=== PATIENT | female | born 1945 | race Caucasian/White ===

== ENCOUNTER → 2018-06-22 08:36 | Outpatient (CLI) | payer OTHER, SELFPAY ==
[2018-06-22 09:37] LABS: Add Manual Diff / Slide Review NO; Basophils Absolute Auto 100 /uL (0-100); Basophils Percent Auto 1.2 % (0-2); Eosinophils Absolute Auto 400 /uL (0-450); Hematocrit 38.5 % (36-46); Hemoglobin 12.7 g/dL (12.0-16.0); Lymphocytes Absolute Auto 1600 /uL (1100-4500); Lymphocytes Percent Auto 26.9 % (25-40); Mean Corpuscular HGB Conc 32.9 % (30-36); Mean Corpuscular Hemoglobin 30.3 PG (26-34); Mean Corpuscular Volume 92.1 fL (80-100); Monocytes Absolute Auto 500 /uL (0-900); Monocytes Percent Auto 9.1 % (3-14); Neutrophils Absolute Auto 3300 /uL (1500-7000); Neutrophils Percent Auto 55.8 % (50-75); Platelet Count 229 X10^3/uL (150-400); Red Blood Cell Count 4.18 X10^6/uL (4.0-5.2); Red Cell Distribution Width 12.4 % (11.6-14.8); White Blood Cell Count 5.9 X10^3/uL (4.5-11.0)
[2018-06-22 09:55] LABS: Alanine Aminotransferase 24 IU/L (9-52); Albumin 4.1 g/dL (3.5-5.0); Albumin Globulin Ratio 1.6 (1.0-2.8); Alkaline Phosphatase 64 U/L (38-126); Aspartate Aminotransferase 25 IU/L (14-36); BUN Creatinine Ratio 23.3 (6-22); Bilirubin Total 0.8 mg/dL (0.2-1.3); Blood Urea Nitrogen 14 mg/dL (7-17); Calcium 10.3 mg/dL (8.4-10.2); Carbon Dioxide 28 mmol/L (22-32); Chloride 102 mmol/L (98-107); Cholesterol 161 mg/dL (140-199); Estimated Glomerular Filt Rate > 60.0 mL/min (>60); Globulin 2.5 g/dL (1.7-4.1); Glucose 80 mg/dL (80-110); HDL Cholesterol 79 mg/dL (40-60); HEMOLYSIS < 15 (0-50); LDL Cholesterol Calculated 74 mg/dL (<100); Potassium 3.7 mmol/L (3.4-5.1); Sodium 138 mmol/L (137-145); Total Protein 6.6 g/dL (6.3-8.2); Triglycerides 41 mg/dL (35-150)
[2018-06-22 10:20] LABS: Vitamin D 25 Hydroxy (D3) 53.9 ng/mL (30.0-100.0)
[2018-06-22 10:32] LABS: Thyroid Stimulating Hormone 2.44 uIU/mL (0.47-4.68)
== END ==
PROVIDERS: PCP Family Medicine; Visit Provider Family Medicine
DX: M85.80 Other specified disorders of bone density and structure, unspecified site (principal); Z13.220 Encounter for screening for lipoid disorders; Z13.29 Encounter for screening for other suspected endocrine disorder
CPT/HCPCS: 36415; 80053; 80061; 82306; 84443; 85025

== ENCOUNTER → 2018-07-05 14:11 | Outpatient (CLI) | payer OTHER, SELFPAY | PROVIDERS: PCP Family Medicine; Visit Provider Family Medicine | DX: M81.0 Age-related osteoporosis without current pathological fracture (principal); Z78.0 Asymptomatic menopausal state; Z82.62 Family history of osteoporosis | CPT/HCPCS: 77080 ==

== ENCOUNTER → 2018-08-29 12:00 | Outpatient (CLI) | payer OTHER, SELFPAY ==
--- NOTE | 2018-08-29 | DI.MG.S_ITS ---
BILATERAL DIGITAL SCREENING MAMMOGRAM 3D/2D WITH CAD: 08/29/2018 CLINICAL: Routine screening. Comparison is made to exams dated: 08/17/2017 mammogram, 07/27/2016 mammogram, and 07/25/2015 mammogram - [facility]. The tissue of both breasts is heterogeneously dense. This may lower the sensitivity of mammography. Current study was also evaluated with a Computer Aided Detection (CAD) system. There are benign calcifications in both breasts. No significant masses, calcifications, or other findings are seen in either breast. There has been no significant interval change. IMPRESSION: There is no mammographic evidence of malignancy. A 1 year screening mammogram is recommended. This exam was interpreted at Station ID: [id number]. NOTE: For mammograms, a report in lay terms will be sent to the patient. Approximately 15% of breast malignancies will not be visualized mammographically. In the management of a palpable breast mass, a negative mammogram must not discourage biopsy of a clinically suspicious lesion. Electronically Signed By: Juan Pablo harrison/micki:08/29/2018 12:50:55 letter sent: Normal Exam ACR BI-RADS Category 2: Benign Finding(s) 3342F
== END ==
PROVIDERS: PCP Family Medicine; Visit Provider Family Medicine
DX: Z12.31 Encounter for screening mammogram for malignant neoplasm of breast (principal)
CPT/HCPCS: 77063; 77067

== ENCOUNTER → 2019-11-02 09:19 | Outpatient (CLI) | payer OTHER, SELFPAY ==
[2019-11-02 09:53] LABS: Add Manual Diff / Slide Review NO; Basophils Absolute Auto 100 /uL (0-100); Eosinophils Absolute Auto 300 /uL (0-450); Eosinophils Percent Auto 5.7 % (2-4); Hematocrit 37.9 % (36-46); Hemoglobin 13.1 g/dL (12.0-16.0); Lymphocytes Absolute Auto 1300 /uL (1100-4500); Lymphocytes Percent Auto 21.6 % (25-40); Mean Corpuscular HGB Conc 34.5 % (30-36); Mean Corpuscular Volume 92.6 fL (80-100); Monocytes Absolute Auto 600 /uL (0-900); Monocytes Percent Auto 9.6 % (3-14); Neutrophils Absolute Auto 3700 /uL (1500-7000); Neutrophils Percent Auto 62.1 % (50-75); Platelet Count 240 X10^3/uL (150-400); Red Blood Cell Count 4.09 X10^6/uL (4.0-5.2); Red Cell Distribution Width 12.7 % (11.6-14.8)
[2019-11-02 10:04] LABS: Alanine Aminotransferase 14 IU/L (<35); Albumin 4.3 g/dL (3.5-5.0); Albumin Globulin Ratio 1.8 (1.0-2.8); Alkaline Phosphatase 54 U/L (38-126); Aspartate Aminotransferase 29 IU/L (14-36); BUN Creatinine Ratio 16.9 (6-22); Bilirubin Total 0.6 mg/dL (0.2-1.3); Blood Urea Nitrogen 11 mg/dL (7-17); Calcium 10.3 mg/dL (8.4-10.2); Carbon Dioxide 29 mmol/L (22-32); Chloride 103 mmol/L (98-107); Cholesterol 179 mg/dL (140-199); Estimated Glomerular Filt Rate > 60.0 mL/min (>60); Globulin 2.4 g/dL (1.7-4.1); Glucose 96 mg/dL (80-110); HDL Cholesterol 87 mg/dL (40-60); HEMOLYSIS < 15 (0-50); LDL Cholesterol Calculated 81 mg/dL (<100); Potassium 4.7 mmol/L (3.4-5.1); Sodium 137 mmol/L (137-145); Total Protein 6.7 g/dL (6.3-8.2); Triglycerides 57 mg/dL (35-150)
== END ==
PROVIDERS: PCP Family Medicine; Referring Provider Family Medicine; Visit Provider Family Medicine
DX: M85.80 Other specified disorders of bone density and structure, unspecified site (principal)
CPT/HCPCS: 36415; 80053; 80061; 85025

== ENCOUNTER → 2019-11-06 14:43 | Outpatient (CLI) | payer OTHER, SELFPAY ==
--- NOTE | 2019-11-06 15:12 | DI.MG.S_ITS ---
Patient Name: MERVAT PERALES date: 1945 Sex: F Attending Physician: Jai Indications: Date: 11/06/2019 15:06 At the request of: Jennifer SHAW Procedure: MM screening mammo BI BILATERAL DIGITAL SCREENING MAMMOGRAM 3D/2D WITH CAD: 11/06/2019 CLINICAL: Routine screening. Comparison is made to exams dated: 08/29/2018 mammogram, 08/17/2017 mammogram, and 07/27/2016 mammogram - [facility]. The tissue of both breasts is heterogeneously dense. This may lower the sensitivity of mammography. Current study was also evaluated with a Computer Aided Detection (CAD) system. There are benign calcifications in both breasts. No significant masses, calcifications, or other findings are seen in either breast. There has been no significant interval change. IMPRESSION: There is no mammographic evidence of malignancy. A 1 year screening mammogram is recommended. This exam was interpreted at Station ID: [id number]. NOTE: For mammograms, a report in lay terms will be sent to the patient. Approximately 15% of breast malignancies will not be visualized mammographically. In the management of a palpable breast mass, a negative mammogram must not discourage biopsy of a clinically suspicious lesion. Electronically Signed By: Lyndon Osorio M.D., jr/micki:11/06/2019 15:43:51 letter sent: Normal Exam ACR BI-RADS Category 2: Benign Finding(s) 3342F
== END ==
PROVIDERS: PCP Family Medicine; Referring Provider Family Medicine; Visit Provider Family Medicine
DX: Z12.31 Encounter for screening mammogram for malignant neoplasm of breast (principal); M85.88 Other specified disorders of bone density and structure, other site; Z78.0 Asymptomatic menopausal state; Z82.62 Family history of osteoporosis
CPT/HCPCS: 77063; 77067; 77080

== ENCOUNTER → 2020-07-11 13:24 | Outpatient (CLI) | payer OTHER, SELFPAY ==
[2020-07-11] MEDS: COVID-19 VACC, Ad26(JANSSEN)/PF 0.5 ML IM (13:54)
== END ==
PROVIDERS: PCP Family Medicine; Visit Provider Internal Medicine
DX: Z23 Encounter for immunization (principal)
CPT/HCPCS: 0031A; 91303

== ENCOUNTER → 2020-11-06 11:24 | Outpatient (CLI) | payer OTHER, SELFPAY ==
--- NOTE | 2020-11-06 11:26 | DI.MG.S_ITS ---
BILATERAL DIGITAL SCREENING MAMMOGRAM 3D/2D WITH CAD: 11/06/2020 CLINICAL: Routine screening. Comparison is made to exams dated: 11/06/2019 mammogram, 08/29/2018 mammogram, and 08/17/2017 mammogram - [facility]. The tissue of both breasts is heterogeneously dense. This may lower the sensitivity of mammography. Current study was also evaluated with a Computer Aided Detection (CAD) system. No significant masses, calcifications, or other findings are seen in either breast. There has been no significant interval change. IMPRESSION: NEGATIVE There is no mammographic evidence of malignancy. A 1 year screening mammogram is recommended. This exam was interpreted at Station ID: [id number]. NOTE: For mammograms, a report in lay terms will be sent to the patient. Approximately 15% of breast malignancies will not be visualized mammographically. In the management of a palpable breast mass, a negative mammogram must not discourage biopsy of a clinically suspicious lesion. Electronically Signed By: Salima atwood/micki:11/06/2020 13:49:41 letter sent: Normal Exam ACR BI-RADS Category 1: Negative 3341F
== END ==
PROVIDERS: PCP Family Medicine; Referring Provider Family Medicine; Visit Provider Family Medicine
DX: Z12.31 Encounter for screening mammogram for malignant neoplasm of breast (principal)
CPT/HCPCS: 77063; 77067

== ENCOUNTER → 2021-02-20 08:36 | Outpatient (CLI) | payer OTHER, SELFPAY ==
[2021-02-20 10:16] LABS: Add Manual Diff / Slide Review NO; Basophils Absolute Auto 100 /uL (0-100); Basophils Percent Auto 0.8 % (0-2); Eosinophils Absolute Auto 500 /uL (0-450); Eosinophils Percent Auto 6.9 % (2-4); Hematocrit 37.4 % (36-46); Hemoglobin 12.6 g/dL (12.0-16.0); Lymphocytes Absolute Auto 1800 /uL (1100-4500); Lymphocytes Percent Auto 27.8 % (25-40); Mean Corpuscular HGB Conc 33.6 % (30-36); Mean Corpuscular Hemoglobin 31.6 PG (26-34); Mean Corpuscular Volume 94.2 fL (80-100); Monocytes Absolute Auto 700 /uL (0-900); Monocytes Percent Auto 10.5 % (3-14); Neutrophils Absolute Auto 3600 /uL (1500-7000); Platelet Count 238 X10^3/uL (150-400); Red Blood Cell Count 3.98 X10^6/uL (4.0-5.2); Red Cell Distribution Width 13.1 % (11.6-14.8); White Blood Cell Count 6.6 X10^3/uL (4.5-11.0)
[2021-02-20 10:25] LABS: Alanine Aminotransferase 14 IU/L (<35); Albumin 4.2 g/dL (3.5-5.0); Albumin Globulin Ratio 1.8 (1.0-2.8); Alkaline Phosphatase 53 U/L (38-126); Aspartate Aminotransferase 27 IU/L (14-36); BUN Creatinine Ratio 23.3 (6-22); Bilirubin Total 0.6 mg/dL (0.2-1.3); Blood Urea Nitrogen 14 mg/dL (7-17); Calcium 10.1 mg/dL (8.4-10.2); Carbon Dioxide 29 mmol/L (22-32); Chloride 103 mmol/L (98-107); Cholesterol 183 mg/dL (140-199); Estimated Glomerular Filt Rate > 60.0 mL/min (>60); Globulin 2.4 g/dL (1.7-4.1); Glucose 89 mg/dL (80-110); HDL Cholesterol 98 mg/dL (40-60); HEMOLYSIS < 15 (0-50); LDL Cholesterol Calculated 72 mg/dL (<100); Potassium 4.9 mmol/L (3.4-5.1); Sodium 136 mmol/L (137-145); Total Protein 6.6 g/dL (6.3-8.2); Triglycerides 64 mg/dL (35-150)
[2021-02-20 11:15] LABS: Free T4, Direct Thyroxine 0.96 ng/dL (0.78-2.19)
[2021-02-20 11:28] LABS: Thyroid Stimulating Hormone 2.38 uIU/mL (0.47-4.68)
== END ==
PROVIDERS: PCP Family Medicine; Referring Provider Family Medicine; Visit Provider Family Medicine
DX: M85.80 Other specified disorders of bone density and structure, unspecified site (principal); Z13.220 Encounter for screening for lipoid disorders
CPT/HCPCS: 36415; 80053; 80061; 84439; 84443; 84481; 85025

== ENCOUNTER → 2021-11-12 15:11 | Outpatient (CLI) | payer OTHER, SELFPAY ==
--- NOTE | 2021-11-12 15:12 | DI.MG.S_ITS ---
BILATERAL DIGITAL SCREENING MAMMOGRAM 3D/2D WITH CAD: 11/12/2021 CLINICAL: Routine screening. Comparison is made to exams dated: 11/06/2020 mammogram, 11/06/2019 mammogram, and 08/29/2018 mammogram - [facility]. The tissue of both breasts is heterogeneously dense. This may lower the sensitivity of mammography. Current study was also evaluated with a Computer Aided Detection (CAD) system. There is a possible developing asymmetry in the right breast at 7 o'clock posterior depth. This is more prominent and increased in size. No other significant masses, calcifications, or other findings are seen in either breast. IMPRESSION: INCOMPLETE: NEEDS ADDITIONAL IMAGING EVALUATION The possible developing asymmetry in the right breast is indeterminate. A diagnostic mammogram and ultrasound is recommended. Based on the Tyrer Cuzick model (a risk assessment model) the patient's lifetime risk is 5.8% and her 10 year risk is 5.8%. According to the ACR, ACS, and NCCN guidelines, an annual breast MRI exam along with mammogram is recommended if the patient's lifetime risk is 20% or greater. This exam was interpreted at Station ID: [id number]. NOTE: For mammograms, a report in lay terms will be sent to the patient. Approximately 15% of breast malignancies will not be visualized mammographically. In the management of a palpable breast mass, a negative mammogram must not discourage biopsy of a clinically suspicious lesion. Electronically Signed By: Lyndon Osorio M.D., jr/micki:11/13/2021 11:53:23 letter sent: Additional Imaging Needed ACR BI-RADS Category 0: Incomplete 3340F
== END ==
PROVIDERS: PCP Family Medicine; Referring Provider Family Medicine; Visit Provider Family Medicine
DX: Z12.31 Encounter for screening mammogram for malignant neoplasm of breast (principal); N64.89 Other specified disorders of breast
CPT/HCPCS: 77063; 77067

== ENCOUNTER → 2021-12-01 10:11 | Outpatient (CLI) | payer OTHER, SELFPAY ==
--- NOTE | 2021-12-01 | DI.MG.S_ITS ---
UNILATERAL RIGHT DIGITAL DIAGNOSTIC MAMMOGRAM 3D/2D WITH ADDITIONAL VIEWS: 12/01/2021 CLINICAL: Additional evaluation requested from prior study. Comparison is made to exams dated: 11/12/2021 mammogram, 11/06/2020 mammogram, and 11/06/2019 mammogram - [facility]. The tissue of right breast is heterogeneously dense. This may lower the sensitivity of mammography. There previously questioned asymmetry in the right breast at 7 o'clock posterior depth has been present since at least 2018 and is statistically benign. This is seen in additional views with improved clarity on the spot compression views. No other significant masses or calcifications are seen in the breast. IMPRESSION: BENIGN There is no mammographic evidence of malignancy. A 1 year screening mammogram is recommended. Based on the Tyrer Cuzick model (a risk assessment model) the patient's lifetime risk is 5.8% and her 10 year risk is 5.8%. According to the ACR, ACS, and NCCN guidelines, an annual breast MRI exam along with mammogram is recommended if the patient's lifetime risk is 20% or greater. This exam was interpreted at Station ID: [id number]. NOTE: For mammograms, a report in lay terms will be sent to the patient. Approximately 15% of breast malignancies will not be visualized mammographically. In the management of a palpable breast mass, a negative mammogram must not discourage biopsy of a clinically suspicious lesion. Electronically Signed By: Lyndon Osorio M.D. jr/:12/01/2021 12:53:44 letter sent: Normal Exam ACR BI-RADS Category 2: Benign Finding(s) 3342F
== END ==
PROVIDERS: PCP Family Medicine; Referring Provider Family Medicine; Visit Provider Family Medicine
DX: R92.8 Other abnormal and inconclusive findings on diagnostic imaging of breast (principal)
CPT/HCPCS: 77065; G0279

== ENCOUNTER → 2021-12-17 11:09 | Outpatient (CLI) | payer OTHER, SELFPAY | PROVIDERS: PCP Family Medicine; Referring Provider Family Medicine; Visit Provider Family Medicine | DX: Z13.820 Encounter for screening for osteoporosis (principal); M81.0 Age-related osteoporosis without current pathological fracture; Z78.0 Asymptomatic menopausal state | CPT/HCPCS: 77080 ==

== ENCOUNTER → 2022-03-03 07:06 | Outpatient (CLI) | payer OTHER, SELFPAY ==
[2022-03-03 08:40] LABS: Add Manual Diff / Slide Review NO; Basophils Absolute Auto 100 /uL (0-100); Eosinophils Absolute Auto 300 /uL (0-450); Eosinophils Percent Auto 4.5 % (2-4); Hematocrit 35.2 % (36-46); Hemoglobin 12.1 g/dL (12.0-16.0); Lymphocytes Absolute Auto 1600 /uL (1100-4500); Lymphocytes Percent Auto 28.8 % (25-40); Mean Corpuscular HGB Conc 34.2 % (30-36); Mean Corpuscular Hemoglobin 31.9 PG (26-34); Mean Corpuscular Volume 93.2 fL (80-100); Monocytes Absolute Auto 500 /uL (0-900); Monocytes Percent Auto 9.4 % (3-14); Neutrophils Absolute Auto 3200 /uL (1500-7000); Neutrophils Percent Auto 56.3 % (50-75); Platelet Count 228 X10^3/uL (150-400); Red Blood Cell Count 3.78 X10^6/uL (4.0-5.2); White Blood Cell Count 5.7 X10^3/uL (4.5-11.0)
[2022-03-03 09:24] LABS: Alanine Aminotransferase 16 IU/L (<35); Albumin 3.9 g/dL (3.5-5.0); Albumin Globulin Ratio 1.6 (1.0-2.8); Alkaline Phosphatase 50 U/L (38-126); Aspartate Aminotransferase 24 IU/L (14-36); BUN Creatinine Ratio 17.7 (6-22); Bilirubin Total 0.8 mg/dL (0.2-1.3); Blood Urea Nitrogen 11 mg/dL (7-17); Carbon Dioxide 29 mmol/L (22-32); Chloride 99 mmol/L (98-107); Cholesterol 186 mg/dL (140-199); Estimated Glomerular Filt Rate > 60 mL/min (>60); Globulin 2.4 g/dL (1.7-4.1); Glucose 87 mg/dL (80-110); HDL Cholesterol 94 mg/dL (40-60); HEMOLYSIS < 15 (0-50); LDL Cholesterol Calculated 83 mg/dL (<100); Potassium 4.4 mmol/L (3.4-5.1); Sodium 135 mmol/L (137-145); Total Protein 6.3 g/dL (6.3-8.2); Triglycerides 43 mg/dL (35-150)
== END ==
PROVIDERS: PCP Family Medicine; Referring Provider Family Medicine; Visit Provider Family Medicine
DX: Z13.220 Encounter for screening for lipoid disorders (principal); K57.90 Diverticulosis of intestine, part unspecified, without perforation or abscess without bleeding; M81.0 Age-related osteoporosis without current pathological fracture
CPT/HCPCS: 36415; 80053; 80061; 85025

== ENCOUNTER → 2022-03-04 14:43 | Outpatient (CLI) | payer OTHER, SELFPAY ==
--- NOTE | 2022-03-04 14:45 | DI.RAD.S_ITS ---
PROCEDURE: XR HIP W PEL IF DONE LT 2V INDICATIONS: pain TECHNIQUE: AP pelvis with lateral view of the left hip. COMPARISON: None. FINDINGS: Bones: No acute fractures or dislocations. Pelvic ring appears intact. No suspicious bony lesions. Mild to moderate joint space narrowing is seen at the hips bilaterally with marginal osteophyte formation that is slightly more prominent on the left. There is over coverage of the femoral heads by the acetabula. Mild degenerative changes are seen in the lumbar spine. Soft tissues: The visualized bowel gas pattern is normal. No suspicious soft tissue calcifications. IMPRESSION: 1. Mild to moderate bilateral hip osteoarthrosis. 2. Mild overcoverage of the femoral heads by the acetabula can be seen in setting of pincer type femoroacetabular impingement. 3. Mild degenerative changes in the lower lumbar spine. Approved by: Yousuf Becerra M.D. on 03/04/2022 at 16:25
== END ==
PROVIDERS: PCP Family Medicine; Referring Provider Family Medicine; Visit Provider Family Medicine
DX: M47.816 Spondylosis without myelopathy or radiculopathy, lumbar region (principal); M25.552 Pain in left hip; M16.0 Bilateral primary osteoarthritis of hip; G89.29 Other chronic pain
CPT/HCPCS: 73502

== ENCOUNTER → 2022-05-13 13:51 | Outpatient (CLI) | payer OTHER, SELFPAY ==
[2022-05-14 16:08] LABS: Fecal Immunochemical Test Negative (Negative)
== END ==
PROVIDERS: PCP Family Medicine; Referring Provider Family Medicine; Visit Provider Family Medicine
DX: Z12.11 Encounter for screening for malignant neoplasm of colon (principal)
CPT/HCPCS: 82274

== ENCOUNTER 2022-07-24 10:30 | Outpatient (RCR) | payer OTHER, SELFPAY ==
--- NOTE | 2022-06-24 16:19 | PT.OPPOC ---
Addendum entered and electronically signed by Carlene Manrique, PT 06/26/22 16:20: need signature Original Note: Physical, Occupational & Speech Therapy At [facility] Current Diagnoses Other chronic pain (06/24/22) Pain in left hip (06/24/22) Visit Care Team Role Provider Type Juan Henry DO Attending Provider Physician Family Provider Primary Care Provider Referring Provider Specialty: Family Practice Address: [address] [place] [address], [facility] Email: Plan Of Care PT-OP-T Assessment and Plan Start: 06/23/22 09:28 Freq: Status: Active Protocol: Document 06/24/22 10:30 AMB (Rec: 06/26/22 16:19 AMB [id number]) Physical Therapy Assessment Goals Three Impairment Transfers Short Term Goal (STG) Elizabeth will move from sit to stand from a low height (low toilet seat) without hip pain. STG Duration 4 weeks Penitentiary Goal (LTG) Elizabeth will move from the floor to standing without environmental support. LTG Duration 10 weeks Two Impairment Strength Short Term Goal (STG) Elizabeth will be independent in a [facility] for hip strengthening. STG Duration 4 weeks Mental Health Advanced Practice Nurse Goal (LTG) Elizabeth will improve her strength so that she can lift 20# from the floor in a squat without an increase in hip pain. LTG Duration 10 weeks One Impairment Pain Short Term Goal (STG) Elizabeth will perform all bed mobility without an increase in hip pain. STG Duration 4 weeks Assessment Summary Assessment Elizabeth attends with L hip pain, good ROM, but does have weak hip extension and abduction. She did have extensive questions about hip osteoarthrosis, osteoporosis and overall prevention of further joint inflammation which were answered. She will benefit from an exercise program to strengthen the muscles surrounding her hip joint and gentle ROM for her stiffness. She also has goals of improving her strength with floor transfers. Physical Therapy Plan Frequency and Duration Frequency of Treatment 2x/Week Duration of treatment (weeks) 10 Plan of Care Start Date 06/24/22 Plan of Care End Date 09/02/22 Therapeutic Interventions Therapeutic Interventions Balance Training,Gait Training ,Home Exercise Program,Joint Mobilizations,Manual Therapy, Neuromuscular Re-education, Self-Care/Home Management, Therapeutic Activities, Therapeutic Exercises Modalities Cold Pack/Ice Massage,Electric Stimulation,Hot Packs Next Visit Focus/Plan Next Note Type Treatment Note Next Visit Plan Gluteal strengthening progression Plan of Care Dates Plan of Care Start Date 06/24/22 Plan of Care End Date 09/02/22 Electronically Signed by: Carlene Manrique, PT 06/26/22 [id number] If you are in agreement with this Plan of Care, please return a signed and dated copy. I have reviewed this Plan of Care and certify that the skilled therapy services above are required to meet the patient?s needs. Physician Signature Date Printed Name and Credentials Clinical Instructor Signature Printed Name and Credentials
--- NOTE | 2022-06-24 16:19 | PT.OIE ---
Current Diagnoses Other chronic pain (06/24/22) Pain in left hip (06/24/22) Past Medical History (Last Updated 03/04/22 @ 14:34 by Juan Henry DO) Abnormal Pap smear of cervix Chicken pox Chronic left hip pain Collar bone fracture (~1977) Colon polyps Diverticulosis Excessive cerumen in right ear canal Hematuria Measles Mumps Nocturnal leg cramps Osteopenia (06/12/14) Osteoporosis (~2018) Screening for hyperlipidemia Shoulder pain (~2007) Skin change Urticaria (~2001) Vaginal atrophy Past Surgical History (Last Updated 02/09/21 @ 21:29 by Danae Angela) Anesthesia Status post colonoscopy (~2009) Visit Care Team Role Provider Type Juan Henry DO Attending Provider Physician Family Provider Primary Care Provider Referring Provider Specialty: Family Practice Address: [address] [place] [address], [facility] Email: Physical Therapy Initial Evaluation PT-OP-A Visit Information Start: 06/23/22 09:28 Freq: Status: Active Protocol: Document 06/24/22 10:46 AMB (Rec: 06/24/22 11:34 AMB [id number]) Out-Patient Physical Therapy Visit Information Visit Information Visit Type Treatment Note Visit Start Time 10:30 Visit Stop Time 11:15 Total Visit Minutes 45 Visit Number 1 PT-OP-B Current Condition Start: 06/23/22 09:28 Freq: Status: Active Protocol: Document 06/24/22 10:46 AMB (Rec: 06/24/22 11:34 AMB [id number]) Current Condition History of Current Condition Onset Date chronic Current Complaints L hip pain History of Current Condition Stiffness when first get up in the left hip, jogging didn't increase sx. Goal of being able to get off the floor without using arms, moving from sit to stand without stiffness, not being painful at night. Reports 3/10 pain in the joint Prior Treatments and Tests Xrays showed osteoarthrosis L hip Treatment Goals Patient/Caregiver Goals Increase strength for better ability/less pain with transfers Personal Factors Other Personal Factors That May Effect Neuropathy, osteoporosis Therapy/Recovery PT-OP-C Subjective Start: 06/23/22 09:28 Freq: Status: Active Protocol: Document 06/24/22 10:30 AMB (Rec: 06/26/22 16:19 AMB [id number]) Patient Questionnaires Lower Extremity Functional Scale LEFS Score 47 PT-OP-G Mobility & Gait Start: 06/23/22 09:28 Freq: Status: Active Protocol: Document 06/24/22 10:30 AMB (Rec: 06/26/22 16:19 AMB [id number]) OP Mobility Evaluation Transfers Sit to Stand pain from low seat/ when has been sitting for a long time Floor Transfers requires UE support PT-OP-J Posture/Palpation/Skin Start: 06/23/22 09:28 Freq: Status: Active Protocol: Document 06/24/22 10:30 AMB (Rec: 06/26/22 16:19 AMB [id number]) Palpation Assessment Location One Palpation Details denies specific tenderness over hip flexor, IT band or piriformis, PT-OP-K Range of Motion Start: 06/23/22 09:28 Freq: Status: Active Protocol: Document 06/24/22 10:30 AMB (Rec: 06/26/22 16:19 AMB [id number]) Hip Goniometric Range of Motion Hip Left Passive Hip ROM WFL Yes Flexion w/Knee Flexed 138 Internal Rotation 25 External Rotation 35 PT-OP-M Strength Start: 06/23/22 09:28 Freq: Status: Active Protocol: Document 06/24/22 10:30 AMB (Rec: 06/26/22 16:19 AMB [id number]) Hip Strength Hip Manual Muscle Testing Right Flexion (L2) 4 Good Extension (S1) 4 Good Abduction 4+ Good+ Left Flexion (L2) 4+ Good+ Extension (S1) 4 Good Abduction 4+ Good+ PT-OP-T Assessment and Plan Start: 06/23/22 09:28 Freq: Status: Active Protocol: Document 06/24/22 10:30 AMB (Rec: 06/26/22 16:19 AMB [id number]) Physical Therapy Assessment Goals Three Impairment Transfers Short Term Goal (STG) Elizabeth will move from sit to stand from a low height (low toilet seat) without hip pain. STG Duration 4 weeks Residential Goal (LTG) Elizabeth will move from the floor to standing without environmental support. LTG Duration 10 weeks Two Impairment Strength Short Term Goal (STG) Elizabeth will be independent in a [facility] for hip strengthening. STG Duration 4 weeks Residential Goal (LTG) Elizabeth will improve her strength so that she can lift 20# from the floor in a squat without an increase in hip pain. LTG Duration 10 weeks One Impairment Pain Short Term Goal (STG) Elizabeth will perform all bed mobility without an increase in hip pain. STG Duration 4 weeks Assessment Summary Assessment Elizabeth attends with L hip pain, good ROM, but does have weak hip extension and abduction. She did have extensive questions about hip osteoarthrosis, osteoporosis and overall prevention of further joint inflammation which were answered. She will benefit from an exercise program to strengthen the muscles surrounding her hip joint and gentle ROM for her stiffness. She also has goals of improving her strength with floor transfers. Physical Therapy Plan Frequency and Duration Frequency of Treatment 2x/Week Duration of treatment (weeks) 10 Plan of Care Start Date 06/24/22 Plan of Care End Date 09/02/22 Therapeutic Interventions Therapeutic Interventions Balance Training,Gait Training ,Home Exercise Program,Joint Mobilizations,Manual Therapy, Neuromuscular Re-education, Self-Care/Home Management, Therapeutic Activities, Therapeutic Exercises Modalities Cold Pack/Ice Massage,Electric Stimulation,Hot Packs Next Visit Focus/Plan Next Note Type Treatment Note Next Visit Plan Gluteal strengthening progression
--- NOTE | 2022-06-30 21:52 | PT.OTN ---
Current Diagnoses Other chronic pain (06/30/22) Pain in left hip (06/30/22) Physical Therapy Treatment Note PT-OP-A Visit Information Start: 06/23/22 09:28 Freq: Status: Active Protocol: Document 06/30/22 09:02 AMB (Rec: 06/30/22 09:41 AMB [id number]) Out-Patient Physical Therapy Visit Information Visit Information Visit Type Treatment Note Visit Start Time 09:00 Visit Stop Time 09:45 Total Visit Minutes 45 Visit Number 2 PT-OP-B Current Condition Start: 06/23/22 09:28 Freq: Status: Active Protocol: Document 06/24/22 10:46 AMB (Rec: 06/24/22 11:34 AMB [id number]) Current Condition History of Current Condition Onset Date chronic Current Complaints L hip pain History of Current Condition Stiffness when first get up in the left hip, jogging didn't increase sx. Goal of being able to get off the floor without using arms, moving from sit to stand without stiffness, not being painful at night. Reports 3/10 pain in the joint Prior Treatments and Tests Xrays showed osteoarthrosis L hip Treatment Goals Patient/Caregiver Goals Increase strength for better ability/less pain with transfers Personal Factors Other Personal Factors That May Effect Neuropathy, osteoporosis Therapy/Recovery PT-OP-C Subjective Start: 06/23/22 09:28 Freq: Status: Active Protocol: Document 06/30/22 09:02 AMB (Rec: 06/30/22 09:41 AMB [id number]) OP-PT Subjective Patient Comments Patient Comments Elizabeth reports hip is stiffer today than yesterday. Has been doing glute sets. PT-OP-G Mobility & Gait Start: 06/23/22 09:28 Freq: Status: Active Protocol: Document 06/24/22 10:30 AMB (Rec: 06/26/22 16:19 AMB [id number]) OP Mobility Evaluation Transfers Sit to Stand pain from low seat/ when has been sitting for a long time Floor Transfers requires UE support PT-OP-J Posture/Palpation/Skin Start: 06/23/22 09:28 Freq: Status: Active Protocol: Document 06/24/22 10:30 AMB (Rec: 06/26/22 16:19 AMB [id number]) Palpation Assessment Location One Palpation Details denies specific tenderness over hip flexor, IT band or piriformis, PT-OP-K Range of Motion Start: 06/23/22 09:28 Freq: Status: Active Protocol: Document 06/24/22 10:30 AMB (Rec: 06/26/22 16:19 AMB [id number]) Hip Goniometric Range of Motion Hip Left Passive Hip ROM WFL Yes Flexion w/Knee Flexed 138 Internal Rotation 25 External Rotation 35 PT-OP-M Strength Start: 06/23/22 09:28 Freq: Status: Active Protocol: Document 06/24/22 10:30 AMB (Rec: 06/26/22 16:19 AMB [id number]) Hip Strength Hip Manual Muscle Testing Right Flexion (L2) 4 Good Extension (S1) 4 Good Abduction 4+ Good+ Left Flexion (L2) 4+ Good+ Extension (S1) 4 Good Abduction 4+ Good+ PT-OP-Q Treatments Start: 06/23/22 09:28 Freq: Status: Active Protocol: Document 06/30/22 09:02 AMB (Rec: 06/30/22 09:41 AMB [id number]) Cardio Equipment Recumbent Bicycle Duration (Minutes) 5 Resistance 8 Seat Position 5 Therapeutic Exercises Sidelying Exercises clamshell Reps/Minutes 2x10 Sitting Exercises PPT Sitting Exercise Name cued to try pelvic tilts before moving from sit to stand Reps/Minutes 10 lunges Sitting Exercise Name forward- small Reps/Minutes 2x10 Comments cues for alignment- avoiding valgus sit to stand Reps/Minutes 10 Comments heavy cues to avoid genu valgus positioning Other Exercises fire hydrant Reps/Minutes 2x10 bird dog Reps/Minutes 2x10 Comments cues for alignment- avoiding excessive lordosis PT-OP-T Assessment and Plan Start: 06/23/22 09:28 Freq: Status: Active Protocol: Document 06/30/22 09:02 AMB (Rec: 06/30/22 09:41 AMB [id number]) Physical Therapy Assessment Goals Three Impairment Transfers Short Term Goal (STG) Elizabeth will move from sit to stand from a low height (low toilet seat) without hip pain. STG Duration 4 weeks [facility] Goal (LTG) Elizabeth will move from the floor to standing without environmental support. LTG Duration 10 weeks Two Impairment Strength Short Term Goal (STG) Elizabeth will be independent in a [facility] for hip strengthening. STG Duration 4 weeks [facility] Goal (LTG) Elizabeth will improve her strength so that she can lift 20# from the floor in a squat without an increase in hip pain. LTG Duration 10 weeks One Impairment Pain Short Term Goal (STG) Elizabeth will perform all bed mobility without an increase in hip pain. STG Duration 4 weeks Assessment Summary Assessment Encouraged Elizabeth in starting to work on posterior pelvic tilt positioning. She does have increased kyphosis which puts her into a lordotic position baseline. She also has a very hard habit of genu valgus with sit to stand so worked heavily on that. To consider orthotics over the coutner vs resident caregiver at next visit. Physical Therapy Plan Frequency and Duration Frequency of Treatment 2x/Week Duration of treatment (weeks) 10 Plan of Care Start Date 06/24/22 Plan of Care End Date 09/02/22 Therapeutic Interventions Therapeutic Interventions Balance Training,Gait Training ,Home Exercise Program,Joint Mobilizations,Manual Therapy, Neuromuscular Re-education, Self-Care/Home Management, Therapeutic Activities, Therapeutic Exercises Modalities Cold Pack/Ice Massage,Electric Stimulation,Hot Packs Next Visit Focus/Plan Next Note Type Treatment Note Next Visit Plan Gluteal strengthening progression. look at orthotics
--- NOTE | 2022-07-03 16:08 | PT.OTN ---
Current Diagnoses Other chronic pain (07/03/22) Pain in left hip (07/03/22) Physical Therapy Treatment Note PT-OP-A Visit Information Start: 06/23/22 09:28 Freq: Status: Active Protocol: Document 07/03/22 09:04 AMB (Rec: 07/03/22 09:50 AMB [id number]) Out-Patient Physical Therapy Visit Information Visit Information Visit Type Treatment Note Visit Start Time 09:00 Visit Stop Time 09:45 Total Visit Minutes 45 Visit Number 3 PT-OP-B Current Condition Start: 06/23/22 09:28 Freq: Status: Active Protocol: Document 06/24/22 10:46 AMB (Rec: 06/24/22 11:34 AMB [id number]) Current Condition History of Current Condition Onset Date chronic Current Complaints L hip pain History of Current Condition Stiffness when first get up in the left hip, jogging didn't increase sx. Goal of being able to get off the floor without using arms, moving from sit to stand without stiffness, not being painful at night. Reports 3/10 pain in the joint Prior Treatments and Tests Xrays showed osteoarthrosis L hip Treatment Goals Patient/Caregiver Goals Increase strength for better ability/less pain with transfers Personal Factors Other Personal Factors That May Effect Neuropathy, osteoporosis Therapy/Recovery PT-OP-C Subjective Start: 06/23/22 09:28 Freq: Status: Active Protocol: Document 07/03/22 09:04 AMB (Rec: 07/03/22 09:50 AMB [id number]) OP-PT Subjective Patient Comments Patient Comments Elizabeth reports some soreness on Wednesday but nothing bad. Has been more aware of her tendency to let the knees fall in. PT-OP-G Mobility & Gait Start: 06/23/22 09:28 Freq: Status: Active Protocol: Document 06/24/22 10:30 AMB (Rec: 06/26/22 16:19 AMB [id number]) OP Mobility Evaluation Transfers Sit to Stand pain from low seat/ when has been sitting for a long time Floor Transfers requires UE support PT-OP-J Posture/Palpation/Skin Start: 06/23/22 09:28 Freq: Status: Active Protocol: Document 06/24/22 10:30 AMB (Rec: 06/26/22 16:19 AMB [id number]) Palpation Assessment Location One Palpation Details denies specific tenderness over hip flexor, IT band or piriformis, PT-OP-K Range of Motion Start: 06/23/22 09:28 Freq: Status: Active Protocol: Document 06/24/22 10:30 AMB (Rec: 06/26/22 16:19 AMB [id number]) Hip Goniometric Range of Motion Hip Left Passive Hip ROM WFL Yes Flexion w/Knee Flexed 138 Internal Rotation 25 External Rotation 35 PT-OP-M Strength Start: 06/23/22 09:28 Freq: Status: Active Protocol: Document 06/24/22 10:30 AMB (Rec: 06/26/22 16:19 AMB [id number]) Hip Strength Hip Manual Muscle Testing Right Flexion (L2) 4 Good Extension (S1) 4 Good Abduction 4+ Good+ Left Flexion (L2) 4+ Good+ Extension (S1) 4 Good Abduction 4+ Good+ PT-OP-Q Treatments Start: 06/23/22 09:28 Freq: Status: Active Protocol: Document 07/03/22 09:04 AMB (Rec: 07/03/22 09:50 AMB [id number]) Cardio Equipment Recumbent Bicycle Duration (Minutes) 5 Resistance 8 Seat Position 5 Therapeutic Exercises Sitting Exercises lunges Sitting Exercise Name forward- small Reps/Minutes 2x10 Comments cues for alignment- avoiding valgus sit to stand Reps/Minutes 10 Comments heavy cues to avoid genu valgus positioning Standing Exercises side stepping Reps/Minutes 10 Comments #2 t band monster walk Reps/Minutes 10 Comments #2 t band--heavy cues for form . Other Exercises bird dog Reps/Minutes 2x10 Comments cues for alignment- avoiding excessive lordosis Self-Care/Home Management Treatment Education Other Education discussed superfeet in depth, considering carbon fiber D. Tried green, blue PT-OP-T Assessment and Plan Start: 06/23/22 09:28 Freq: Status: Active Protocol: Document 07/03/22 09:00 AMB (Rec: 07/03/22 16:06 AMB [id number]) Physical Therapy Assessment Goals Three Impairment Transfers Short Term Goal (STG) Elizabeth will move from sit to stand from a low height (low toilet seat) without hip pain. STG Duration 4 weeks Intermediate Goal (LTG) Elizabeth will move from the floor to standing without environmental support. LTG Duration 10 weeks Two Impairment Strength Short Term Goal (STG) Elizabeth will be independent in a HEP for hip strengthening. STG Duration 4 weeks Intermediate Goal (LTG) Elizabeth will improve her strength so that she can lift 20# from the floor in a squat without an increase in hip pain. LTG Duration 10 weeks One Impairment Pain Short Term Goal (STG) Elizabeth will perform all bed mobility without an increase in hip pain. STG Duration 4 weeks Assessment Summary Assessment Elizabeth is working hard to be more aware of her knee valgus positioning. Is considering orthotics. Fatigues quickly with bike and sit to stand. Physical Therapy Plan Frequency and Duration Frequency of Treatment 2x/Week Duration of treatment (weeks) 10 Plan of Care Start Date 06/24/22 Plan of Care End Date 09/02/22 Therapeutic Interventions Therapeutic Interventions Balance Training,Gait Training ,Home Exercise Program,Joint Mobilizations,Manual Therapy, Neuromuscular Re-education, Self-Care/Home Management, Therapeutic Activities, Therapeutic Exercises Modalities Cold Pack/Ice Massage,Electric Stimulation,Hot Packs Next Visit Focus/Plan Next Note Type Treatment Note Next Visit Plan Gluteal strengthening progression. Progress strengthening to avoid knee valgus positioning
--- NOTE | 2022-07-07 10:33 | PT.OTN ---
Current Diagnoses Other chronic pain (07/07/22) Pain in left hip (07/07/22) Physical Therapy Treatment Note PT-OP-A Visit Information Start: 06/23/22 09:28 Freq: Status: Active Protocol: Document 07/07/22 09:48 SP (Rec: 07/07/22 10:36 SP [id number]) Out-Patient Physical Therapy Visit Information Visit Information Visit Type Treatment Note Visit Start Time 09:48 Visit Stop Time 10:33 Total Visit Minutes 45 Visit Number 4 Number of MASONRY TEACHER Visits 1 PT-OP-B Current Condition Start: 06/23/22 09:28 Freq: Status: Active Protocol: Document 06/24/22 10:46 AMB (Rec: 06/24/22 11:34 AMB [id number]) Current Condition History of Current Condition Onset Date chronic Current Complaints L hip pain History of Current Condition Stiffness when first get up in the left hip, jogging didn't increase sx. Goal of being able to get off the floor without using arms, moving from sit to stand without stiffness, not being painful at night. Reports 3/10 pain in the joint Prior Treatments and Tests Xrays showed osteoarthrosis L hip Treatment Goals Patient/Caregiver Goals Increase strength for better ability/less pain with transfers Personal Factors Other Personal Factors That May Effect Neuropathy, osteoporosis Therapy/Recovery PT-OP-C Subjective Start: 06/23/22 09:28 Freq: Status: Active Protocol: Document 07/07/22 09:48 SP (Rec: 07/07/22 10:36 SP [id number]) OP-PT Subjective Patient Comments Patient Comments Pt reports doing compliant with HEP and better about form . She stated is more aware of arch lift and knees apart to stand and come to stand. PT-OP-G Mobility & Gait Start: 06/23/22 09:28 Freq: Status: Active Protocol: Document 06/24/22 10:30 AMB (Rec: 06/26/22 16:19 AMB [id number]) OP Mobility Evaluation Transfers Sit to Stand pain from low seat/ when has been sitting for a long time Floor Transfers requires UE support PT-OP-J Posture/Palpation/Skin Start: 06/23/22 09:28 Freq: Status: Active Protocol: Document 06/24/22 10:30 AMB (Rec: 06/26/22 16:19 AMB [id number]) Palpation Assessment Location One Palpation Details denies specific tenderness over hip flexor, IT band or piriformis, PT-OP-K Range of Motion Start: 06/23/22 09:28 Freq: Status: Active Protocol: Document 06/24/22 10:30 AMB (Rec: 06/26/22 16:19 AMB [id number]) Hip Goniometric Range of Motion Hip Left Passive Hip ROM WFL Yes Flexion w/Knee Flexed 138 Internal Rotation 25 External Rotation 35 PT-OP-M Strength Start: 06/23/22 09:28 Freq: Status: Active Protocol: Document 06/24/22 10:30 AMB (Rec: 06/26/22 16:19 AMB [id number]) Hip Strength Hip Manual Muscle Testing Right Flexion (L2) 4 Good Extension (S1) 4 Good Abduction 4+ Good+ Left Flexion (L2) 4+ Good+ Extension (S1) 4 Good Abduction 4+ Good+ PT-OP-Q Treatments Start: 06/23/22 09:28 Freq: Status: Active Protocol: Document 07/07/22 09:48 SP (Rec: 07/07/22 10:36 SP [id number]) Cardio Equipment Recumbent Bicycle Duration (Minutes) 6 Resistance 8 Seat Position 5 Other 54 RPM Therapeutic Exercises Sitting Exercises lunges Sitting Exercise Name forward- small Equipment Used contact rail PRN, Reps/Minutes 2x10 Comments good form, space bwtn BLEs, knees behind and with mid foot sit to stand Sitting Exercise Name arms front/across chest/on hips only needed Resistance R TB around knees Equipment Used mesh chair, 16 box (toilet approx 17) Reps/Minutes x10, x3 reps 16box hip hinge use arms Comments cued knees apart and slow eccent sit hip hinge Standing Exercises side stepping Standing Exercise Name HEP reviewed Resistance TB #2 at ankles Equipment Used improved for with cues, near counter safety needed- ok Reps/Minutes 15 ft x2 laps Comments cued tall posturing, little bigger than normal step, foot clearance monster walk Standing Exercise Name HEP reviewed: Fwd/Bwd Resistance TB #2 at ankles Equipment Used improved for with cues, near counter safety needed- ok Reps/Minutes 15 ft x2 laps Comments cued tall posturing, little bigger than normal step, foot clearance Other Exercises fire hydrant Other Exercise Name added to HEP Reps/Minutes x5 Comments cued quad, neutral CS chin nod , bird dog Other Exercise Name reviewed HEP Equipment Used yoga mat on floor Reps/Minutes 2x10 Comments cues for alignment- avoiding excessive lordosis PT-OP-T Assessment and Plan Start: 06/23/22 09:28 Freq: Status: Active Protocol: Document 07/07/22 09:48 SP (Rec: 07/07/22 10:36 SP [id number]) Physical Therapy Assessment Goals Three Impairment Transfers Short Term Goal (STG) Elizabeth will move from sit to stand from a low height (low toilet seat) without hip pain. 07/07/22: GOAL MET: able ascend/ descend 16 box STS without UE support w/ cues for hip hinge slow descent, uses arm front/ crossed chest for success. STG Duration 4 weeks GOAL MET: 07/07/22 Mcfp Goal (LTG) Elizabeth will move from the floor to standing without environmental support. 07/07/22: progressing: pt able get on/off floor w/ rail support. LTG Duration 10 weeks progressing 07/07/22 Two Impairment Strength Short Term Goal (STG) Elizabeth will be independent in a HEP for hip strengthening. 07/07/22: added quadruped UE/LE ext, hydrant, standing resisted side stepping, stationary lunges supported, STS w/ TB around thighs. STG Duration 4 weeks progressing 07/07/22 Mcfp Goal (LTG) Elizabeth will improve her strength so that she can lift 20# from the floor in a squat without an increase in hip pain. LTG Duration 10 weeks One Impairment Pain Short Term Goal (STG) Elizabeth will perform all bed mobility without an increase in hip pain. STG Duration 4 weeks Assessment Summary Assessment Pt improved form/alignment with cues CS, back/ scapular complex effort during quaduped able to stabilize UE/ LE ext but contact floor cued slow con/eccentric return. SHe demonstrated good muscle effort STS with no UE support and better understanding hip hinge slow descend to allow on /off toliet. Mod/max cues for lunges and proper alignment. Physical Therapy Plan Frequency and Duration Frequency of Treatment 2x/Week Duration of treatment (weeks) 10 Plan of Care Start Date 06/24/22 Plan of Care End Date 09/02/22 Therapeutic Interventions Therapeutic Interventions Balance Training,Gait Training ,Home Exercise Program,Joint Mobilizations,Manual Therapy, Neuromuscular Re-education, Self-Care/Home Management, Therapeutic Activities, Therapeutic Exercises Modalities Cold Pack/Ice Massage,Electric Stimulation,Hot Packs Next Visit Focus/Plan Next Note Type Treatment Note Next Visit Plan REview HEP: recheck lungcarol, bird dog. next tx: trial glut med lift at wall. Introduce stretching for post ther ex recovery if needed. Gluteal strengthening progression. Progress strengthening to avoid knee valgus positioning
--- NOTE | 2022-07-10 11:35 | PT.OTN ---
Current Diagnoses Other chronic pain (07/10/22) Pain in left hip (07/10/22) Physical Therapy Treatment Note PT-OP-A Visit Information Start: 06/23/22 09:28 Freq: Status: Active Protocol: Document 07/10/22 10:35 AMB (Rec: 07/10/22 11:35 AMB [id number]) Out-Patient Physical Therapy Visit Information Visit Information Visit Type Treatment Note Visit Start Time 09:48 Visit Stop Time 10:33 Total Visit Minutes 45 Visit Number 5 PT-OP-B Current Condition Start: 06/23/22 09:28 Freq: Status: Active Protocol: Document 06/24/22 10:46 AMB (Rec: 06/24/22 11:34 AMB [id number]) Current Condition History of Current Condition Onset Date chronic Current Complaints L hip pain History of Current Condition Stiffness when first get up in the left hip, jogging didn't increase sx. Goal of being able to get off the floor without using arms, moving from sit to stand without stiffness, not being painful at night. Reports 3/10 pain in the joint Prior Treatments and Tests Xrays showed osteoarthrosis L hip Treatment Goals Patient/Caregiver Goals Increase strength for better ability/less pain with transfers Personal Factors Other Personal Factors That May Effect Neuropathy, osteoporosis Therapy/Recovery PT-OP-C Subjective Start: 06/23/22 09:28 Freq: Status: Active Protocol: Document 07/10/22 10:35 AMB (Rec: 07/10/22 11:35 AMB [id number]) OP-PT Subjective Patient Comments Patient Comments Pt reports her pain is significantly improving. PT-OP-G Mobility & Gait Start: 06/23/22 09:28 Freq: Status: Active Protocol: Document 06/24/22 10:30 AMB (Rec: 06/26/22 16:19 AMB [id number]) OP Mobility Evaluation Transfers Sit to Stand pain from low seat/ when has been sitting for a long time Floor Transfers requires UE support PT-OP-J Posture/Palpation/Skin Start: 06/23/22 09:28 Freq: Status: Active Protocol: Document 06/24/22 10:30 AMB (Rec: 06/26/22 16:19 AMB [id number]) Palpation Assessment Location One Palpation Details denies specific tenderness over hip flexor, IT band or piriformis, PT-OP-K Range of Motion Start: 06/23/22 09:28 Freq: Status: Active Protocol: Document 06/24/22 10:30 AMB (Rec: 06/26/22 16:19 AMB [id number]) Hip Goniometric Range of Motion Hip Left Passive Hip ROM WFL Yes Flexion w/Knee Flexed 138 Internal Rotation 25 External Rotation 35 PT-OP-M Strength Start: 06/23/22 09:28 Freq: Status: Active Protocol: Document 06/24/22 10:30 AMB (Rec: 06/26/22 16:19 AMB [id number]) Hip Strength Hip Manual Muscle Testing Right Flexion (L2) 4 Good Extension (S1) 4 Good Abduction 4+ Good+ Left Flexion (L2) 4+ Good+ Extension (S1) 4 Good Abduction 4+ Good+ PT-OP-Q Treatments Start: 06/23/22 09:28 Freq: Status: Active Protocol: Document 07/10/22 10:35 AMB (Rec: 07/10/22 11:35 AMB [id number]) Therapeutic Exercises Sitting Exercises therapy ball Sitting Exercise Name july- focus on balance, core Reps/Minutes 10 lunges Sitting Exercise Name forward- small Equipment Used contact rail PRN, Reps/Minutes 2x10 Comments good form, space bwtn BLEs, knees behind and with mid foot sit to stand Sitting Exercise Name arms front/across chest/on hips only needed Resistance R TB around knees Equipment Used mesh chair, 16 box (toilet approx 17) Reps/Minutes x10, x3 reps 16box hip hinge use arms Comments cued knees apart and slow eccent sit hip hinge Standing Exercises side stepping Standing Exercise Name HEP reviewed Resistance TB #2 at ankles Equipment Used improved for with cues, near counter safety needed- ok Reps/Minutes 15 ft x2 laps Comments cued tall posturing, little bigger than normal step, foot clearance PT-OP-T Assessment and Plan Start: 06/23/22 09:28 Freq: Status: Active Protocol: Document 07/10/22 10:35 AMB (Rec: 07/10/22 11:35 AMB [id number]) Physical Therapy Assessment Goals Three Impairment Transfers Short Term Goal (STG) Elizabeth will move from sit to stand from a low height (low toilet seat) without hip pain. 07/07/22: GOAL MET: able ascend/ descend 16 box STS without UE support w/ cues for hip hinge slow descent, uses arm front/ crossed chest for success. STG Duration 4 weeks GOAL MET: 07/07/22 Forming Acid Dumper Goal (LTG) Elizabeth will move from the floor to standing without environmental support. 07/07/22: progressing: pt able get on/off floor w/ rail support. LTG Duration 10 weeks progressing 07/07/22 Two Impairment Strength Short Term Goal (STG) Elizabeth will be independent in a HEP for hip strengthening. 07/07/22: added quadruped UE/LE ext, hydrant, standing resisted side stepping, stationary lunges supported, STS w/ TB around thighs. STG Duration 4 weeks progressing 07/07/22 Assisted Goal (LTG) Elizabeth will improve her strength so that she can lift 20# from the floor in a squat without an increase in hip pain. LTG Duration 10 weeks One Impairment Pain Short Term Goal (STG) Elizabeth will perform all bed mobility without an increase in hip pain. STG Duration 4 weeks Assessment Summary Assessment Pt Concerned about overall health/exercise regime. Encouraged pt in body mechanics and continued exercise to improve hip abductors. Physical Therapy Plan Frequency and Duration Frequency of Treatment 2x/Week Duration of treatment (weeks) 10 Plan of Care Start Date 06/24/22 Plan of Care End Date 09/02/22 Therapeutic Interventions Therapeutic Interventions Balance Training,Gait Training ,Home Exercise Program,Joint Mobilizations,Manual Therapy, Neuromuscular Re-education, Self-Care/Home Management, Therapeutic Activities, Therapeutic Exercises Modalities Cold Pack/Ice Massage,Electric Stimulation,Hot Packs
--- NOTE | 2022-07-14 10:30 | PT.OTN ---
Current Diagnoses Other chronic pain (07/14/22) Pain in left hip (07/14/22) Physical Therapy Treatment Note PT-OP-A Visit Information Start: 06/23/22 09:28 Freq: Status: Active Protocol: Document 07/14/22 09:50 SP (Rec: 07/14/22 10:35 SP [id number]) Out-Patient Physical Therapy Visit Information Visit Information Visit Type Treatment Note Visit Start Time 09:50 Visit Stop Time 10:30 Total Visit Minutes 40 Visit Number 6 Number of PAPER SHEETER Visits 1 PT-OP-B Current Condition Start: 06/23/22 09:28 Freq: Status: Active Protocol: Document 06/24/22 10:46 AMB (Rec: 06/24/22 11:34 AMB [id number]) Current Condition History of Current Condition Onset Date chronic Current Complaints L hip pain History of Current Condition Stiffness when first get up in the left hip, jogging didn't increase sx. Goal of being able to get off the floor without using arms, moving from sit to stand without stiffness, not being painful at night. Reports 3/10 pain in the joint Prior Treatments and Tests Xrays showed osteoarthrosis L hip Treatment Goals Patient/Caregiver Goals Increase strength for better ability/less pain with transfers Personal Factors Other Personal Factors That May Effect Neuropathy, osteoporosis Therapy/Recovery PT-OP-C Subjective Start: 06/23/22 09:28 Freq: Status: Active Protocol: Document 07/14/22 09:50 SP (Rec: 07/14/22 10:35 SP [id number]) OP-PT Subjective Patient Comments Patient Comments Pt reports: the other day did all the exercises and found was little sore doing them all at same time. She stated has a exercise structure that wants to know what things recommend using with compliment at home but not sure can find a stud to fasten it to properly to secure. PT-OP-G Mobility & Gait Start: 06/23/22 09:28 Freq: Status: Active Protocol: Document 06/24/22 10:30 AMB (Rec: 06/26/22 16:19 AMB [id number]) OP Mobility Evaluation Transfers Sit to Stand pain from low seat/ when has been sitting for a long time Floor Transfers requires UE support PT-OP-J Posture/Palpation/Skin Start: 06/23/22 09:28 Freq: Status: Active Protocol: Document 06/24/22 10:30 AMB (Rec: 06/26/22 16:19 AMB [id number]) Palpation Assessment Location One Palpation Details denies specific tenderness over hip flexor, IT band or piriformis, PT-OP-K Range of Motion Start: 06/23/22 09:28 Freq: Status: Active Protocol: Document 06/24/22 10:30 AMB (Rec: 06/26/22 16:19 AMB [id number]) Hip Goniometric Range of Motion Hip Left Passive Hip ROM WFL Yes Flexion w/Knee Flexed 138 Internal Rotation 25 External Rotation 35 PT-OP-M Strength Start: 06/23/22 09:28 Freq: Status: Active Protocol: Document 06/24/22 10:30 AMB (Rec: 06/26/22 16:19 AMB [id number]) Hip Strength Hip Manual Muscle Testing Right Flexion (L2) 4 Good Extension (S1) 4 Good Abduction 4+ Good+ Left Flexion (L2) 4+ Good+ Extension (S1) 4 Good Abduction 4+ Good+ PT-OP-Q Treatments Start: 06/23/22 09:28 Freq: Status: Active Protocol: Document 07/14/22 09:50 SP (Rec: 07/14/22 10:35 SP [id number]) Cardio Equipment Recumbent Bicycle Duration (Minutes) 6 Resistance 8 Seat Position 5 Other 54 RPM Therapeutic Exercises Sitting Exercises therapy ball Sitting Exercise Name 1. pelvic tilts A-P-Lateral 2. july 3. LAQ Reps/Minutes 10 Comments focus on balance, core, posturing lunges Sitting Exercise Name forward- small Equipment Used contact rail PRN, mirrror for knee/ hip/ trunk alignment Reps/Minutes 2x10 Comments good form, space bwtn BLEs, knees behind and with mid foot sit to stand Sitting Exercise Name arms front/across chest/on hips only needed Resistance R TB around knees Equipment Used mesh chair, 16 box> 18 chair (toilet approx 17) Reps/Minutes x2 reps 16 box, x10 18 hip hinge use arms Comments cued knees apart and slow eccent sit hip hinge Standing Exercises side stepping Standing Exercise Name HEP reviewed Resistance TB #2 at ankles Equipment Used improved for with cues, near counter safety needed- ok Reps/Minutes 15 ft x2 laps Comments cued tall posturing, little bigger/ normal step, ft clearance knees w/ toes PT-OP-T Assessment and Plan Start: 06/23/22 09:28 Freq: Status: Active Protocol: Document 07/14/22 09:50 SP (Rec: 07/14/22 10:35 SP [id number]) Physical Therapy Assessment Goals Three Impairment Transfers Short Term Goal (STG) Elizabeth will move from sit to stand from a low height (low toilet seat) without hip pain. 07/07/22: GOAL MET: able ascend/ descend 16 box STS without UE support w/ cues for hip hinge slow descent, uses arm front/ crossed chest for success. STG Duration 4 weeks GOAL MET: 07/07/22 Fpc Goal (LTG) Elizabeth will move from the floor to standing without environmental support. 07/07/22: progressing: pt able get on/off floor w/ rail support. LTG Duration 10 weeks progressing 07/07/22 Two Impairment Strength Short Term Goal (STG) Elizabeth will be independent in a HEP for hip strengthening. 07/07/22: added quadruped UE/LE ext, hydrant, standing resisted side stepping, stationary lunges supported, STS w/ TB around thighs. STG Duration 4 weeks progressing 07/07/22 Fpc Goal (LTG) Elizabeth will improve her strength so that she can lift 20# from the floor in a squat without an increase in hip pain. LTG Duration 10 weeks One Impairment Pain Short Term Goal (STG) Elizabeth will perform all bed mobility without an increase in hip pain. STG Duration 4 weeks Assessment Summary Assessment Pt ed for posturing and scap during seated Tball balancing/ core HEP less UE support on side ball needed. He improved hip hinge with glut facilitation during lunges with dues for knee/foot alignment. Pt better understanding proper form during ther ex today, discussed bring HOs to write cues on for home carryover next tx. Physical Therapy Plan Frequency and Duration Frequency of Treatment 2x/Week Duration of treatment (weeks) 10 Plan of Care Start Date 06/24/22 Plan of Care End Date 09/02/22 Therapeutic Interventions Therapeutic Interventions Balance Training,Gait Training ,Home Exercise Program,Joint Mobilizations,Manual Therapy, Neuromuscular Re-education, Self-Care/Home Management, Therapeutic Activities, Therapeutic Exercises Modalities Cold Pack/Ice Massage,Electric Stimulation,Hot Packs Next Visit Focus/Plan Next Note Type Treatment Note Next Visit Plan Review next tx bringing in manual to structure ex equipment to assess what exercises can do at home. [facility]view HEP: recheck lungcarol, bird dog. next tx: trial glut med lift at wall for strengthening. Introduce stretching for post ther ex recovery if needed. Gluteal strengthening progression. Progress strengthening to avoid knee valgus positioning
--- NOTE | 2022-07-17 12:00 | PT.OTN ---
Current Diagnoses Other chronic pain (07/17/22) Pain in left hip (07/17/22) Physical Therapy Treatment Note PT-OP-A Visit Information Start: 06/23/22 09:28 Freq: Status: Active Protocol: Document 07/17/22 10:34 AMB (Rec: 07/17/22 11:19 AMB [id number]) Out-Patient Physical Therapy Visit Information Visit Information Visit Type Treatment Note Visit Start Time 10:30 Visit Stop Time 11:15 Total Visit Minutes 45 Visit Number 7 PT-OP-B Current Condition Start: 06/23/22 09:28 Freq: Status: Active Protocol: Document 06/24/22 10:46 AMB (Rec: 06/24/22 11:34 AMB [id number]) Current Condition History of Current Condition Onset Date chronic Current Complaints L hip pain History of Current Condition Stiffness when first get up in the left hip, jogging didn't increase sx. Goal of being able to get off the floor without using arms, moving from sit to stand without stiffness, not being painful at night. Reports 3/10 pain in the joint Prior Treatments and Tests Xrays showed osteoarthrosis L hip Treatment Goals Patient/Caregiver Goals Increase strength for better ability/less pain with transfers Personal Factors Other Personal Factors That May Effect Neuropathy, osteoporosis Therapy/Recovery PT-OP-C Subjective Start: 06/23/22 09:28 Freq: Status: Active Protocol: Document 07/14/22 09:50 SP (Rec: 07/14/22 10:35 SP [id number]) OP-PT Subjective Patient Comments Patient Comments Pt reports: the other day did all the exercises and found was little sore doing them all at same time. She stated has a exercise structure that wants to know what things recommend using with compliment at home but not sure can find a stud to fasten it to properly to secure. PT-OP-G Mobility & Gait Start: 06/23/22 09:28 Freq: Status: Active Protocol: Document 06/24/22 10:30 AMB (Rec: 06/26/22 16:19 AMB [id number]) OP Mobility Evaluation Transfers Sit to Stand pain from low seat/ when has been sitting for a long time Floor Transfers requires UE support PT-OP-J Posture/Palpation/Skin Start: 06/23/22 09:28 Freq: Status: Active Protocol: Document 06/24/22 10:30 AMB (Rec: 06/26/22 16:19 AMB [id number]) Palpation Assessment Location One Palpation Details denies specific tenderness over hip flexor, IT band or piriformis, PT-OP-K Range of Motion Start: 06/23/22 09:28 Freq: Status: Active Protocol: Document 06/24/22 10:30 AMB (Rec: 06/26/22 16:19 AMB [id number]) Hip Goniometric Range of Motion Hip Left Passive Hip ROM WFL Yes Flexion w/Knee Flexed 138 Internal Rotation 25 External Rotation 35 PT-OP-M Strength Start: 06/23/22 09:28 Freq: Status: Active Protocol: Document 06/24/22 10:30 AMB (Rec: 06/26/22 16:19 AMB [id number]) Hip Strength Hip Manual Muscle Testing Right Flexion (L2) 4 Good Extension (S1) 4 Good Abduction 4+ Good+ Left Flexion (L2) 4+ Good+ Extension (S1) 4 Good Abduction 4+ Good+ PT-OP-Q Treatments Start: 06/23/22 09:28 Freq: Status: Active Protocol: Document 07/17/22 10:30 AMB (Rec: 07/17/22 11:59 AMB [id number]) Therapeutic Exercises Standing Exercises squat Reps/Minutes 2x10 Comments extensive education on form, HO provided hamstring stretch Reps/Minutes 30'x2 side stepping Standing Exercise Name HEP reviewed Resistance TB #2 at ankles Equipment Used improved for with cues, near counter safety needed- ok Reps/Minutes 15 ft x2 laps Comments cued tall posturing, little bigger/ normal step, ft clearance knees w/ toes Self-Care/Home Management Treatment Education Other Education Reviewed patient's exercise booklet, educated to avoid lumbar flexion and loading with weight (example of deadlift had a lotof spinal flexion) due to pt's osteoporosis status, education in how to progress weightlifting. PT-OP-T Assessment and Plan Start: 06/23/22 09:28 Freq: Status: Active Protocol: Document 07/17/22 10:34 AMB (Rec: 07/17/22 11:19 AMB [id number]) Physical Therapy Assessment Goals Three Impairment Transfers Short Term Goal (STG) Elizabeth will move from sit to stand from a low height (low toilet seat) without hip pain. 07/07/22: GOAL MET: able ascend/ descend 16 box STS without UE support w/ cues for hip hinge slow descent, uses arm front/ crossed chest for success. STG Duration 4 weeks GOAL MET: 07/07/22 Intermediate Goal (LTG) Elizabeth will move from the floor to standing without environmental support. 07/07/22: progressing: pt able get on/off floor w/ rail support. LTG Duration 10 weeks progressing 07/07/22 Two Impairment Strength Short Term Goal (STG) Elizabeth will be independent in a HEP for hip strengthening. 07/07/22: added quadruped UE/LE ext, hydrant, standing resisted side stepping, stationary lunges supported, STS w/ TB around thighs. STG Duration 4 weeks progressing 07/07/22 Intermediate Goal (LTG) Elizabeth will improve her strength so that she can lift 20# from the floor in a squat without an increase in hip pain. LTG Duration 10 weeks One Impairment Pain Short Term Goal (STG) Elizabeth will perform all bed mobility without an increase in hip pain. STG Duration 4 weeks Physical Therapy Plan Frequency and Duration Frequency of Treatment 2x/Week Duration of treatment (weeks) 10 Plan of Care Start Date 06/24/22 Plan of Care End Date 09/02/22 Therapeutic Interventions Therapeutic Interventions Balance Training,Gait Training ,Home Exercise Program,Joint Mobilizations,Manual Therapy, Neuromuscular Re-education, Self-Care/Home Management, Therapeutic Activities, Therapeutic Exercises Modalities Cold Pack/Ice Massage,Electric Stimulation,Hot Packs
--- NOTE | 2022-07-21 11:24 | PT.OTN ---
Addendum entered and electronically signed by Peyton Peters, [employer]INE 07/21/22 11:46: Next appt, last tx and pt ready for DC to self HEP. Original Note: Current Diagnoses Other chronic pain (07/21/22) Pain in left hip (07/21/22) Physical Therapy Treatment Note PT-OP-A Visit Information Start: 06/23/22 09:28 Freq: Status: Active Protocol: Document 07/21/22 10:30 SP (Rec: 07/21/22 11:45 SP [id number]) Out-Patient Physical Therapy Visit Information Visit Information Visit Type Treatment Note Visit Start Time 10:30 Visit Stop Time 11:24 Total Visit Minutes 54 Visit Number 8 Number of [employer]ACHINE Visits 1 PT-OP-B Current Condition Start: 06/23/22 09:28 Freq: Status: Active Protocol: Document 06/24/22 10:46 AMB (Rec: 06/24/22 11:34 AMB [id number]) Current Condition History of Current Condition Onset Date chronic Current Complaints L hip pain History of Current Condition Stiffness when first get up in the left hip, jogging didn't increase sx. Goal of being able to get off the floor without using arms, moving from sit to stand without stiffness, not being painful at night. Reports 3/10 pain in the joint Prior Treatments and Tests Xrays showed osteoarthrosis L hip Treatment Goals Patient/Caregiver Goals Increase strength for better ability/less pain with transfers Personal Factors Other Personal Factors That May Effect Neuropathy, osteoporosis Therapy/Recovery PT-OP-C Subjective Start: 06/23/22 09:28 Freq: Status: Active Protocol: Document 07/21/22 10:30 SP (Rec: 07/21/22 11:45 SP [id number]) OP-PT Subjective Patient Comments Patient Comments Pt stated was able to access [employer] and find some more self exercises, want to check if ok: ankle TB, 4 way hip TB. She said is able to get on/ off floor better without UE support L LE forward vs R but able to do during tx. Pt excited about making stations around house to use exercise performance. Was little sore few days ago trying reps/set and where deciding best location to perform. PT-OP-G Mobility & Gait Start: 06/23/22 09:28 Freq: Status: Active Protocol: Document 06/24/22 10:30 AMB (Rec: 06/26/22 16:19 AMB [id number]) OP Mobility Evaluation Transfers Sit to Stand pain from low seat/ when has been sitting for a long time Floor Transfers requires UE support PT-OP-J Posture/Palpation/Skin Start: 06/23/22 09:28 Freq: Status: Active Protocol: Document 06/24/22 10:30 AMB (Rec: 06/26/22 16:19 AMB [id number]) Palpation Assessment Location One Palpation Details denies specific tenderness over hip flexor, IT band or piriformis, PT-OP-K Range of Motion Start: 06/23/22 09:28 Freq: Status: Active Protocol: Document 06/24/22 10:30 AMB (Rec: 06/26/22 16:19 AMB [id number]) Hip Goniometric Range of Motion Hip Left Passive Hip ROM WFL Yes Flexion w/Knee Flexed 138 Internal Rotation 25 External Rotation 35 PT-OP-M Strength Start: 06/23/22 09:28 Freq: Status: Active Protocol: Document 06/24/22 10:30 AMB (Rec: 06/26/22 16:19 AMB [id number]) Hip Strength Hip Manual Muscle Testing Right Flexion (L2) 4 Good Extension (S1) 4 Good Abduction 4+ Good+ Left Flexion (L2) 4+ Good+ Extension (S1) 4 Good Abduction 4+ Good+ PT-OP-Q Treatments Start: 06/23/22 09:28 Freq: Status: Active Protocol: Document 07/21/22 10:30 SP (Rec: 07/21/22 11:45 SP [id number]) Cardio Equipment Treadmill Duration (Minutes) 4 Speed 2.0 Incline 0 Other gait analysis: B valgus and R foot circumduction, cued posture/ heel toe Therapeutic Exercises Sitting Exercises ankle DF, IV Sitting Exercise Name added to HEP Side right Resistance TB #2 Reps/Minutes 2x10 Comments cued slower con/eccentric return. sit to stand Sitting Exercise Name arms front/across chest/on hips only needed Resistance R TB around knees vs knee // holding 5# DB Equipment Used 17 chair w/ blue foam on Reps/Minutes 3x 5 reps Comments cued knees apart and slow eccent sit hip hinge- improved form Standing Exercises 4 way hip Standing Exercise Name added to HEP: flex/high knee, abd, add, extension Side bilateral Resistance TB #2 anchored on body solid, door home Reps/Minutes x10 each Comments cued contact safety as needed nearby, set/form good carryover squat Resistance 5# DB Equipment Used used chair behind initially for form hip hinge Reps/Minutes 2x10 Comments cued hip hinge needed to allow eccentric lowering wanting to perform Therapeutic Activity Therapeutic Activity on/off floor Reps/Minutes x3 Comments Pt able to ascend/descend without UE last rep, ed can use UE support on floor needed dimas challenge side sit to kneeling but able to perform. PT-OP-T Assessment and Plan Start: 06/23/22 09:28 Freq: Status: Active Protocol: Document 07/21/22 10:30 SP (Rec: 07/21/22 11:45 SP [id number]) Physical Therapy Assessment Goals Three Impairment Transfers Short Term Goal (STG) Elizabeth will move from sit to stand from a low height (low toilet seat) without hip pain. 07/07/22: GOAL MET: able ascend/ descend 16 box STS without UE support w/ cues for hip hinge slow descent, uses arm front/ crossed chest for success. STG Duration 4 weeks GOAL MET: 07/07/22 Glove Machine Operator Goal (LTG) Elizabeth will move from the floor to standing without environmental support. 07/07/22: progressing: pt able get on/off floor w/ rail support. 07/21/22: MET GOAL: pt able get on/off floor self without UE support LTG Duration 10 weeks GOAL MET 07/21/22 Two Impairment Strength Short Term Goal (STG) Elizabeth will be independent in a HEP for hip strengthening. 07/07/22: added quadruped UE/LE ext, hydrant, standing resisted side stepping, stationary lunges supported, STS w/ TB around thighs. 07/21/22: added ankle DF, EV support alignment gait, 4 way hip standing TB. STG Duration 4 weeks progressing 07/21/22 Glove Machine Operator Goal (LTG) Elizabeth will improve her strength so that she can lift 20# from the floor in a squat without an increase in hip pain. LTG Duration 10 weeks One Impairment Pain Short Term Goal (STG) Elizabeth will perform all bed mobility without an increase in hip pain. STG Duration 4 weeks Assessment Summary Assessment Pt cue for set up and form during HEP. Discussed start reps tolerated and good form. May need to do ex 3x/wk, all at once in sitting can be sore , progress reps then sets then can add resistance/weight as improve strength. Good feedback use pt phone for self corrections knee/ ankle alignment. Physical Therapy Plan Frequency and Duration Frequency of Treatment 2x/Week Duration of treatment (weeks) 10 Plan of Care Start Date 06/24/22 Plan of Care End Date 09/02/22 Therapeutic Interventions Therapeutic Interventions Balance Training,Gait Training ,Home Exercise Program,Joint Mobilizations,Manual Therapy, Neuromuscular Re-education, Self-Care/Home Management, Therapeutic Activities, Therapeutic Exercises Modalities Cold Pack/Ice Massage,Electric Stimulation,Hot Packs Next Visit Focus/Plan Next Note Type Treatment Note Next Visit Plan Recheck response to 4 way hip/ ankle added last tx. [facility]view HEP: recheck lunges, bird dog. next tx: trial glut med lift at wall for strengthening. Introduce stretching for post ther ex recovery if needed. Gluteal strengthening progression. Progress strengthening to avoid knee valgus positioning
--- NOTE | 2022-07-24 13:53 | PT.OTN ---
Current Diagnoses Other chronic pain (07/24/22) Pain in left hip (07/24/22) Physical Therapy Treatment Note PT-OP-A Visit Information Start: 06/23/22 09:28 Freq: Status: Active Protocol: Document 07/24/22 10:35 AMB (Rec: 07/24/22 11:17 AMB [id number]) Out-Patient Physical Therapy Visit Information Visit Information Visit Type Treatment Note Visit Start Time 10:30 Visit Stop Time 11:15 Total Visit Minutes 45 Visit Number 9 Number of HOME [employer] Visits 0 PT-OP-B Current Condition Start: 06/23/22 09:28 Freq: Status: Active Protocol: Document 06/24/22 10:46 AMB (Rec: 06/24/22 11:34 AMB [id number]) Current Condition History of Current Condition Onset Date chronic Current Complaints L hip pain History of Current Condition Stiffness when first get up in the left hip, jogging didn't increase sx. Goal of being able to get off the floor without using arms, moving from sit to stand without stiffness, not being painful at night. Reports 3/10 pain in the joint Prior Treatments and Tests Xrays showed osteoarthrosis L hip Treatment Goals Patient/Caregiver Goals Increase strength for better ability/less pain with transfers Personal Factors Other Personal Factors That May Effect Neuropathy, osteoporosis Therapy/Recovery PT-OP-C Subjective Start: 06/23/22 09:28 Freq: Status: Active Protocol: Document 07/24/22 10:30 AMB (Rec: 07/24/22 13:00 AMB [id number]) OP-PT Subjective Patient Comments Patient Comments Elizabeth is concerned about her gait, overall her hip is feeling better, still feels it a bit when getting out of bed , but then when she starts walking it's fine. PT-OP-G Mobility & Gait Start: 06/23/22 09:28 Freq: Status: Active Protocol: Document 06/24/22 10:30 AMB (Rec: 06/26/22 16:19 AMB [id number]) OP Mobility Evaluation Transfers Sit to Stand pain from low seat/ when has been sitting for a long time Floor Transfers requires UE support PT-OP-J Posture/Palpation/Skin Start: 06/23/22 09:28 Freq: Status: Active Protocol: Document 06/24/22 10:30 AMB (Rec: 02/24/23 16:19 AMB [id number]) Palpation Assessment Location One Palpation Details denies specific tenderness over hip flexor, IT band or piriformis, PT-OP-K Range of Motion Start: 06/23/22 09:28 Freq: Status: Active Protocol: Document 06/24/22 10:30 AMB (Rec: 06/26/22 16:19 AMB [id number]) Hip Goniometric Range of Motion Hip Left Passive Hip ROM WFL Yes Flexion w/Knee Flexed 138 Internal Rotation 25 External Rotation 35 PT-OP-M Strength Start: 06/23/22 09:28 Freq: Status: Active Protocol: Document 06/24/22 10:30 AMB (Rec: 06/26/22 16:19 AMB [id number]) Hip Strength Hip Manual Muscle Testing Right Flexion (L2) 4 Good Extension (S1) 4 Good Abduction 4+ Good+ Left Flexion (L2) 4+ Good+ Extension (S1) 4 Good Abduction 4+ Good+ PT-OP-Q Treatments Start: 06/23/22 09:28 Freq: Status: Active Protocol: Document 07/24/22 10:30 AMB (Rec: 07/24/22 13:00 AMB [id number]) Therapeutic Exercises Sitting Exercises sit to stand Sitting Exercise Name arms front/across chest/on hips only needed Resistance R TB around knees vs knee // holding 5# DB Equipment Used 17 chair w/ blue foam on Reps/Minutes 3x 5 reps Comments cued knees apart and slow eccent sit hip hinge- improved form Standing Exercises 4 way hip Standing Exercise Name added to HEP: flex/high knee, abd, add, extension Side bilateral Resistance TB #2 anchored on body solid, door home Reps/Minutes x10 each Comments cued contact safety as needed nearby, set/form good carryover squat Resistance 5# DB Equipment Used used chair behind initially for form hip hinge Reps/Minutes 2x10 Comments cued hip hinge needed to allow eccentric lowering wanting to perform side stepping Standing Exercise Name HEP reviewed Resistance TB #2 at ankles Equipment Used improved for with cues, near counter safety needed- ok Reps/Minutes 15 ft x2 laps Comments cued tall posturing, little bigger/ normal step, ft clearance knees w/ toes Therapeutic Activity Therapeutic Activity lifting mechanics Name squat to lift 10# crate at knee height and at floor Reps/Minutes 10 min Comments cued hips back posture PT-OP-T Assessment and Plan Start: 06/23/22 09:28 Freq: Status: Active Protocol: Document 07/24/22 10:35 AMB (Rec: 07/24/22 11:17 AMB [id number]) Physical Therapy Assessment Goals Three Impairment Transfers Short Term Goal (STG) Elizabeth will move from sit to stand from a low height (low toilet seat) without hip pain. 07/07/22: GOAL MET: able ascend/ descend 16 box STS without UE support w/ cues for hip hinge slow descent, uses arm front/ crossed chest for success. STG Duration 4 weeks GOAL MET: 07/07/22 Penitentiary Goal (LTG) Elizabeth will move from the floor to standing without environmental support. 07/07/22: progressing: pt able get on/off floor w/ rail support. 07/21/22: MET GOAL: pt able get on/off floor self without UE support LTG Duration 10 weeks GOAL MET 07/21/22 Two Impairment Strength Short Term Goal (STG) Elizabeth will be independent in a HEP for hip strengthening. 07/07/22: added quadruped UE/LE ext, hydrant, standing resisted side stepping, stationary lunges supported, STS w/ TB around thighs. 07/21/22: added ankle DF, EV support alignment gait, 4 way hip standing TB. STG Duration MET Penitentiary Goal (LTG) Elizabeth will improve her strength so that she can lift 20# from the floor in a squat without an increase in hip pain. LTG Duration progress made 10# One Impairment Pain Short Term Goal (STG) Elizabeth will perform all bed mobility without an increase in hip pain. STG Duration Progressing: less pain Assessment Summary Assessment Pt has improved well, less pain now than at evaluation. Continues to have some weakness, but feels that she is getting stronger and has a good plan of how to continue to strengthen. Overall pain is just when first standing up and decreases with activity. Physical Therapy Plan Frequency and Duration Frequency of Treatment 2x/Week Duration of treatment (weeks) 10 Plan of Care Start Date 06/24/22 Plan of Care End Date 09/02/22 Therapeutic Interventions Therapeutic Interventions Balance Training,Gait Training ,Home Exercise Program,Joint Mobilizations,Manual Therapy, Neuromuscular Re-education, Self-Care/Home Management, Therapeutic Activities, Therapeutic Exercises Modalities Cold Pack/Ice Massage,Electric Stimulation,Hot Packs Discharge Physical Therapy Discharge Reasons Goals Met
== END 2022-07-27 11:06 | disposition home or self-care (01) ==
LOC: PHYS 10:30
PROVIDERS: Family Provider Family Medicine; PCP Family Medicine; Referring Provider Family Medicine; Visit Provider Family Medicine
DX: M25.552 Pain in left hip (principal); G89.29 Other chronic pain
CPT/HCPCS: 97110; 97112; 97161; 97530; 97535

== ENCOUNTER → 2022-12-04 09:11 | Outpatient (CLI) | payer OTHER, SELFPAY ==
--- NOTE | 2022-12-04 | DI.MG.S_ITS ---
BILATERAL DIGITAL SCREENING MAMMOGRAM 3D/2D WITH CAD: 12/04/2022 CLINICAL: Routine screening. Comparison is made to exams dated: 11/12/2021 mammogram, 11/06/2020 mammogram, and 11/06/2019 mammogram - [facility]. Both breasts are heterogeneously dense, which may obscure small masses (category c / 51-75% glandular tissue). Current study was also evaluated with a Computer Aided Detection (CAD) system. There are benign vascular calcifications in the right breast. No significant masses, calcifications, or other findings are seen in either breast. There has been no significant interval change. IMPRESSION: BENIGN There is no mammographic evidence of malignancy. A 1 year screening mammogram is recommended. Based on the Tyrer Cuzick model (a risk assessment model) the patient's lifetime risk is 5.3% and her 10 year risk is 0.0%. According to the ACR, ACS, and NCCN guidelines, an annual breast MRI exam along with mammogram is recommended if the patient's lifetime risk is 20% or greater. This exam was interpreted at Station ID: [id number]. NOTE: For mammograms, a report in lay terms will be sent to the patient. Approximately 15% of breast malignancies will not be visualized mammographically. In the management of a palpable breast mass, a negative mammogram must not discourage biopsy of a clinically suspicious lesion. Electronically Signed By: Ivory soriano/micki:12/04/2022 13:06:26 letter sent: Normal Exam ACR BI-RADS Category 2: Benign Finding(s) 3342F
== END ==
PROVIDERS: Family Provider Family Medicine; PCP Family Medicine; Referring Provider Family Medicine; Visit Provider Family Medicine
DX: Z12.31 Encounter for screening mammogram for malignant neoplasm of breast (principal)
CPT/HCPCS: 77063; 77067

== ENCOUNTER → 2023-01-01 08:04 | Outpatient (CLI) | payer OTHER, SELFPAY ==
[2023-01-01 10:24] LABS: Calcium 24 Hour Urine 56 mg/day (100-300); Calcium Urine Random 2.6 mg/dL; Collection Time Urine 24 Hours; Total Volume Urine 2150 mL
[2023-01-01 10:25] LABS: Collection Time Urine 24 Hours; Creatinine 24 Hour Urine 729 mg/day (800-1800); Creatinine Urine Random 33.9 mg/dL; Total Volume Urine 2150 mL
== END ==
PROVIDERS: Family Provider Family Medicine; PCP Family Medicine; Referring Provider Student in an Organized Health Care Education/Training Program; Visit Provider Student in an Organized Health Care Education/Training Program
DX: E21.3 Hyperparathyroidism, unspecified (principal)
CPT/HCPCS: 82340; 82570

== ENCOUNTER → 2023-01-05 | Outpatient (CLI) | payer OTHER, SELFPAY ==
--- NOTE | 2023-01-05 | DI.RAD.S_ITS ---
Bone Density Report Name: MERVAT PERALES Age: 77 Sex: Female Ethnicity: White Date of : 1945 Indication: postmenopausal osteoporosis; monitoring treatment; Referring Provider: KYUNG RODRIGUEZ Study: Bone densitometry was performed. Exam Date: January 05, 2023 Accession number: [id number] Bone Density: Region BMD T-score Z-score Classification AP Spine(L1-L4) 0.765 -2.6 -0.1 Osteoporosis Femoral Neck (Left) 0.699 -1.4 0.8 Osteopenia Total Hip (Left) 0.779 -1.3 0.5 Osteopenia Femoral Neck (Right) 0.636 -1.9 0.2 Osteopenia Total Hip (Right) 0.780 -1.3 0.5 Osteopenia Total Hip Mean 0.779 -1.3 0.5 Osteopenia World Health Organization criteria for BMD impression classify patients as: Normal (T-score at or above -1.0), Osteopenia (T-score between -1.0 and -2.5), or Osteoporosis (T-score at or below -2.5). 10-year Fracture Risk: FRAX not reported because: Some T-score for Spine Total or Hip Total or Femoral Neck at or below -2.5 Treated for osteoporosis Previous Exams: -- Region Exam Age BMD T-score BMD Change BMD Change Date g/cm2 vs Baseline vs Previous -- AP Spine (L1-L4) 01/05/2023 77 0.765 -2.6 -0.002 (-0.2%) -0.002 (-0.2%) 12/17/2021 76 0.766 -2.6 Total Hip(Left) 01/05/2023 77 0.779 -1.3 0.039 (5.3%)# 0.039 (5.3%)# 12/17/2021 76 0.740 -1.7 Total Hip(Right) 01/05/2023 77 0.780 -1.3 0.029 (3.9%)# 0.029 (3.9%)# 12/17/2021 76 0.750 -1.6 -- *Denotes significance at 95% confidence level, LSC for AP Spine = 0.022 g/cm2, LSC for Total Hip = 0.027 g/cm2 # Denotes dissimilar scan types or analysis methods Impression: The patient has osteoporosis, based on the Total Spine T-score. No significant bone loss was observed. Discussion: PATIENT UNDER TREATMENT WITH NO SIGNIFICANT BMD LOSS SINCE LAST EXAM. In an untreated patient, BMD typically declines with age. A lack of decline or gain is usually a sign that treatment is efficacious and fracture risk is reduced. It is important to ask patients whether they are taking their medications and to encourage continued and appropriate compliance with their osteoporosis therapies to reduce fracture risk. It is also important to review their risk factors and encourage appropriate calcium and vitamin D intakes, exercise, fall prevention and other lifestyle measures. Follow-Up: Consider a repeat BMD and Vertebral Fracture Assessment (VFA) exam in 2 years or sooner if medically necessary, to reassess this patient's status. Reported by: LYRIC BURDEN M.D. on 01/05/2023 11:14:00 AM.
== END ==
LOC: RAD 10:55
PROVIDERS: Family Provider Family Medicine; PCP Family Medicine; Referring Provider Student in an Organized Health Care Education/Training Program; Visit Provider Student in an Organized Health Care Education/Training Program
DX: E21.3 Hyperparathyroidism, unspecified (principal); M81.0 Age-related osteoporosis without current pathological fracture; Z79.83 Long term (current) use of bisphosphonates
CPT/HCPCS: 77080

== ENCOUNTER → 2023-03-05 06:55 | Outpatient (CLI) | payer OTHER, SELFPAY ==
[2023-03-05 07:51] LABS: Add Manual Diff / Slide Review NO; Basophils Absolute Auto 100 /uL (0-100); Basophils Percent Auto 1.2 % (0-2); Eosinophils Absolute Auto 300 /uL (0-450); Eosinophils Percent Auto 4.7 % (2-4); Hemoglobin 12.5 g/dL (12.0-16.0); Lymphocytes Absolute Auto 1700 /uL (1100-4500); Lymphocytes Percent Auto 31.6 % (25-40); Mean Corpuscular HGB Conc 33.8 % (30-36); Mean Corpuscular Hemoglobin 31.8 PG (26-34); Mean Corpuscular Volume 94.1 fL (80-100); Monocytes Absolute Auto 500 /uL (0-900); Neutrophils Absolute Auto 2800 /uL (1500-7000); Neutrophils Percent Auto 52.5 % (50-75); Platelet Count 226 X10^3/uL (150-400); Red Blood Cell Count 3.93 X10^6/uL (4.0-5.2); Red Cell Distribution Width 13.2 % (11.6-14.8); White Blood Cell Count 5.4 X10^3/uL (4.5-11.0)
[2023-03-05 08:05] LABS: Alanine Aminotransferase 15 IU/L (<35); Albumin 4.1 g/dL (3.5-5.0); Albumin Globulin Ratio 1.9 (1.0-2.8); Alkaline Phosphatase 48 U/L (38-126); Aspartate Aminotransferase 27 IU/L (14-36); BUN Creatinine Ratio 19.7 (6-22); Blood Urea Nitrogen 12 mg/dL (7-17); Calcium 10.2 mg/dL (8.4-10.2); Carbon Dioxide 28 mmol/L (22-32); Chloride 102 mmol/L (98-107); Estimated Glomerular Filt Rate > 60 mL/min (>60); Globulin 2.2 g/dL (1.7-4.1); Glucose 80 mg/dL (80-110); HEMOLYSIS < 15 (0-50); Sodium 135 mmol/L (137-145); Total Protein 6.3 g/dL (6.3-8.2)
[2023-03-05 08:20] LABS: Vitamin D 25 Hydroxy (D3) 33.4 ng/mL (30.0-100.0)
== END ==
PROVIDERS: Family Provider Family Medicine; PCP Family Medicine; Referring Provider Family Medicine; Visit Provider Family Medicine
DX: Z00.00 Encounter for general adult medical examination without abnormal findings (principal); Z13.220 Encounter for screening for lipoid disorders; M81.0 Age-related osteoporosis without current pathological fracture; E55.9 Vitamin D deficiency, unspecified
CPT/HCPCS: 36415; 80053; 82306; 85025

== ENCOUNTER → 2023-04-13 09:48 | Outpatient (CLI) | payer OTHER, SELFPAY ==
[2023-04-13 10:57] LABS: Albumin 3.8 g/dL (3.5-5.0); BUN Creatinine Ratio 21.9 (6-22); Blood Urea Nitrogen 14 mg/dL (7-17); Calcium 9.4 mg/dL (8.4-10.2); Carbon Dioxide 29 mmol/L (22-32); Chloride 102 mmol/L (98-107); Estimated Glomerular Filt Rate > 60 mL/min (>60); Glucose 85 mg/dL (80-110); HEMOLYSIS < 15 (0-50); Phosphorous 3.8 mg/dL (2.8-4.1); Potassium 3.9 mmol/L (3.4-5.1); Sodium 137 mmol/L (137-145)
[2023-04-15 08:01] LABS: Calcium 9.3 mg/dL (8.7-10.3); Parathyroid Hormone, Intact 22 pg/mL (15-65)
== END ==
PROVIDERS: Family Provider Family Medicine; PCP Family Medicine; Referring Provider Student in an Organized Health Care Education/Training Program; Visit Provider Student in an Organized Health Care Education/Training Program
DX: E21.0 Primary hyperparathyroidism (principal)
CPT/HCPCS: 36415; 80069; 82306; 82310; 83970

== ENCOUNTER → 2023-08-19 09:23 | Outpatient (CLI) | payer OTHER, SELFPAY ==
[2023-08-19 11:14] LABS: Albumin 4.2 g/dL (3.5-5.0); Blood Urea Nitrogen 18 mg/dL (7-17); Calcium 9.2 mg/dL (8.4-10.2); Carbon Dioxide 31 mmol/L (22-32); Chloride 101 mmol/L (98-107); Estimated Glomerular Filt Rate > 60 mL/min (>60); Glucose 90 mg/dL (80-110); HEMOLYSIS 19 (0-50); Phosphorous 4.3 mg/dL (2.8-4.1); Potassium 4.4 mmol/L (3.4-5.1); Sodium 134 mmol/L (137-145)
[2023-08-21 10:15] LABS: Calcium 9.2 mg/dL (8.7-10.3); Parathyroid Hormone, Intact 32 pg/mL (15-65)
== END ==
LOC: LAB 09:25
PROVIDERS: Family Provider Family Medicine; PCP Nurse Practitioner; Referring Provider Student in an Organized Health Care Education/Training Program; Visit Provider Student in an Organized Health Care Education/Training Program
DX: Z86.39 Personal history of other endocrine, nutritional and metabolic disease (principal)
CPT/HCPCS: 36415; 80069; 82306; 82310; 83970

== ENCOUNTER → 2023-12-14 09:11 | Outpatient (CLI) | payer OTHER, SELFPAY ==
--- NOTE | 2023-12-14 09:12 | DI.MG.S_ITS ---
BILATERAL DIGITAL SCREENING MAMMOGRAM 3D/2D WITH CAD: 12/14/2023 CLINICAL: Routine screening. Comparison is made to exams dated: 12/04/2022 mammogram, 11/12/2021 mammogram, and 11/06/2020 mammogram - [facility]. Both breasts are heterogeneously dense, which may obscure small masses (category c / 51-75% glandular tissue). Current study was also evaluated with a Computer Aided Detection (CAD) system. No significant masses, calcifications, or other findings are seen in either breast. There has been no significant interval change. IMPRESSION: NEGATIVE There is no mammographic evidence of malignancy. A 1 year screening mammogram is recommended. Based on the Tyrer Cuzick model (a risk assessment model) the patient's lifetime risk is 4.8% and her 10 year risk is 0.0%. According to the ACR, ACS, and NCCN guidelines, an annual breast MRI exam along with mammogram is recommended if the patient's lifetime risk is 20% or greater. This exam was interpreted at Station ID: [id number]. NOTE: For mammograms, a report in lay terms will be sent to the patient. Approximately 15% of breast malignancies will not be visualized mammographically. In the management of a palpable breast mass, a negative mammogram must not discourage biopsy of a clinically suspicious lesion. Electronically Signed By: Zohra Louie M.D., Ph.D. [email or web address]/[email or web address]:12/14/2023 14:27:45 letter sent: Normal Exam ACR BI-RADS Category 1: Negative [id number]
== END ==
PROVIDERS: Family Provider Family Medicine; PCP Family Medicine; Referring Provider Family Medicine; Visit Provider Family Medicine
DX: Z12.31 Encounter for screening mammogram for malignant neoplasm of breast (principal); R92.333 Mammographic heterogeneous density, bilateral breasts
CPT/HCPCS: 77063; 77067

== ENCOUNTER → 2024-05-23 07:58 | Outpatient (CLI) | payer OTHER, SELFPAY ==
[2024-05-23 08:35] LABS: Add Manual Diff / Slide Review NO; Basophils Absolute Auto 100 /uL (0-100); Basophils Percent Auto 0.8 % (0-2); Eosinophils Absolute Auto 500 /uL (0-450); Eosinophils Percent Auto 8.6 % (2-4); Hematocrit 37.6 % (36-46); Hemoglobin 12.8 g/dL (12.0-16.0); Lymphocytes Absolute Auto 1600 /uL (1100-4500); Lymphocytes Percent Auto 25.1 % (25-40); Mean Corpuscular HGB Conc 34.2 % (30-36); Mean Corpuscular Hemoglobin 31.3 PG (26-34); Mean Corpuscular Volume 91.6 fL (80-100); Monocytes Absolute Auto 600 /uL (0-900); Neutrophils Absolute Auto 3600 /uL (1500-7000); Neutrophils Percent Auto 56.5 % (50-75); Platelet Count 263 X10^3/uL (150-400); Red Cell Distribution Width 12.4 % (11.6-14.8); White Blood Cell Count 6.4 X10^3/uL (4.5-11.0)
[2024-05-23 08:50] LABS: Alanine Aminotransferase 19 IU/L (<35); Albumin 4.3 g/dL (3.5-5.0); Alkaline Phosphatase 59 U/L (38-126); Aspartate Aminotransferase 32 IU/L (14-36); Bilirubin Total 0.9 mg/dL (0.2-1.3); Blood Urea Nitrogen 16 mg/dL (7-17); Calcium 9.4 mg/dL (8.4-10.2); Carbon Dioxide 31 mmol/L (22-32); Chloride 102 mmol/L (98-107); Cholesterol 200 mg/dL (140-199); Estimated Glomerular Filt Rate > 60 mL/min (>60); Globulin 2.1 g/dL (1.7-4.1); Glucose 89 mg/dL (80-110); HDL Cholesterol 86 mg/dL (40-60); HEMOLYSIS < 15 (0-50); LDL Cholesterol Calculated 101 mg/dL (<100); Potassium 4.1 mmol/L (3.4-5.1); Sodium 136 mmol/L (137-145); Total Protein 6.4 g/dL (6.3-8.2); Triglycerides 63 mg/dL (35-150)
[2024-05-23 08:51] LABS: Albumin 4.3 g/dL (3.5-5.0); BUN Creatinine Ratio 20.3 (6-22); Blood Urea Nitrogen 16 mg/dL (7-17); Calcium 9.4 mg/dL (8.4-10.2); Carbon Dioxide 32 mmol/L (22-32); Chloride 101 mmol/L (98-107); Estimated Glomerular Filt Rate > 60 mL/min (>60); Glucose 88 mg/dL (80-110); HEMOLYSIS < 15 (0-50); Phosphorous 4.2 mg/dL (2.8-4.1); Potassium 4.2 mmol/L (3.4-5.1); Sodium 136 mmol/L (137-145)
[2024-05-23 09:09] LABS: T4 Total Thyroxine 7.36 ug/dL (5.5-11.0)
[2024-05-23 09:09] LABS: Vitamin D 25 Hydroxy (D3) 57.9 ng/mL (30.0-100.0)
[2024-05-23 09:21] LABS: TSH w/ Reflex to FT4 2.54 uIU/mL (0.47-4.68)
[2024-05-23 09:23] LABS: Thyroid Stimulating Hormone 2.51 uIU/mL (0.47-4.68)
[2024-05-24 13:11] LABS: Calcium 9.5 mg/dL (8.7-10.3); Parathyroid Hormone, Intact 28 pg/mL (15-65)
== END ==
PROVIDERS: Family Provider Family Medicine; PCP Family Medicine; Referring Provider Student in an Organized Health Care Education/Training Program; Visit Provider Student in an Organized Health Care Education/Training Program
DX: E03.9 Hypothyroidism, unspecified (principal); M81.0 Age-related osteoporosis without current pathological fracture; Z13.220 Encounter for screening for lipoid disorders; E55.9 Vitamin D deficiency, unspecified
CPT/HCPCS: 36415; 80053; 80061; 80069; 82306; 82310; 83970; 84436; 84443; 85025

== ENCOUNTER 2024-11-29 09:36 | Outpatient (RCR) | payer OTHER, SELFPAY ==
--- NOTE | 2024-11-29 11:57 | ST.OPIE ---
Visit Care Team Role Provider Type Juan Henry DO Attending Provider Physician Family Provider Primary Care Provider Referring Provider Specialty: Family Practice Address: [address] [place] [address], [facility] Email: Speech-Language Pathology Initial Evaluation CARPENTRY TEACHER Clinical Swallow Evaluation Start: 11/29/24 10:46 Freq: Status: Active Protocol: Document 11/29/24 10:46 SS (Rec: 11/29/24 10:48 SS Desktop) Clinical Swallow Evaluation Session Time Visit Start Time 09:45 Visit Stop Time 10:30 Total Visit Minutes 45 Visit Information Visit Number 05/[id number] Plan of Care Dates 11/29/24-04/01/25 Insurance [facility] (x15 visits) Information Referral Referring Provider Dr. Juan Henry Reason for Referral Dysphagia Setting Assessment Location Outpatient Care Visit Type Note Type Initial evaluation Next Note Type Next Note Type Treatment Note Patient Information Identification Type Name History Elizabeth Calderon is a 79-year-old female, referred for a clinical swallow evaluation by Dr. Henry due to concerns regarding swallowing liquids, pills, and chronic cough /throat clearing. About 9 months ago, pt had onset of difficulty swallowing liquids, particularly when waking up in the middle of the night. She also reported difficulty swallowing pills with liquid wash, stating they get stuck in her throat. She denied coughing or choking with solids, but reported occasional sticking sensation in her upper chest and throat with solids. Pt has a history of chronic cough. Upper endoscopy, pulmonology, or allergy treatment not recommended yet. Prior medical history includes diverticulosis, osteoporosis, and s/p parathyroid resection. Pt denied additional GI history, GERD, unintentional weight loss, or PNA. Subjective Pt arrived to the evaluation on time and was engaged Observations and motivated throughout. Reported by Patient/Caregiver Other Symptoms Difficulty swallowing liquids,Difficulty swallowing pills,Food gets stuck Comment BASELINE LEVEL OF FUNCTION Solids: Regular Liquids: Thin Medications: Whole in puree carrier Functional Oral Intake Scale (FOIS): FOIS level 7 FOIS Parr: Level 1 = no oral intake, Level 2 = tube dependent with minimal/inconsistent oral intake, Level 3 = tube supplements with consistent oral intake, Level 4 = total oral intake of a single consistency, Level 5 = total oral intake of multiple consistencies requiring special preparation, Level 6 = total oral intake with no special preparation, but must avoid specific foods or liquid items, Level 7 = total oral intake with no restrictions Current Diet Regular (IDDSI 7) Baseline Feeding Independent in self-feeding Method Results The Eating Assessment Tool (EAT-10) The Eating Assessment Tool (EAT-10) was administered. This tool is a symptom-specific outcome instrument for dysphagia. It consists of ten statements regarding the patient?s swallow and the patient scores each on a scale of 0-4, with 0 indicating no problem and 4 indicating a severe problem. A score of >3/40 could indicate a swallowing impairment that warrants further assessment/treatment. The patient scored a 5/40, indicating the need for further assessment. The Reflux Symptom Index (RSI) RSI administered following patient report of voice changes and throat clearing. The RSI is a questionnaire in which the patient rates nine different reflux related problems in a scale of 0 ?no problem? to 5 ? severe problem? in order to screen for laryngopharyngeal reflux (LPR). A score of >13/45 indicated the presence of LPR. The patent score a 14/45 . Recommend she follow with PCP re: possible LPR. The IDDSI Framework Protocol: IDDSI.1 Objective Assessment Mental Status Alert,Responsive,Cooperative Oral Integrity WFL Dentition Within normal limits Lip Function Within normal limits Tongue Function Within normal limits Jaw Function Within normal limits Hard/Soft Palate Within normal limits Function Comment Patient?s oral health is good. Patient has own dentition with dental work noted. The patient reports brushing her teeth x2 daily. Oral health status is one of the three pillars of aspiration pneumonia, with research showing that poor oral health increases the risk of pulmonary compromise associated with aspiration (Ginger, 2005). CRANIAL NERVE EXAM CN V (Trigeminal): intact b/l CN VII (Facial): intact b/l CN IX/X (Glossopharyngeal/Vagus): intact b/l CN XII (Hypoglossal): intact b/l Food and Liquid Trials Position During Upright (90 degrees) Assessment Liquids Trialed Thin (IDDSI 0) Solid Trials Purred (IDDSI 4),Soft & Bite-sized (IDDSI 6),Regular ( IDDSI 7) Administration Type Tea spoon,Cup single sip,Cup consecutive sips,Straw, Self-feeding Oral Impairment Within normal limits Oral Phase Comments Oral acceptance and containment within normal limits. Mastication appeared organized and efficient. No oral residue noted post-swallows. Pharyngeal Mildly impaired Impairment Pharyngeal Phase No overt s/sx aspiration noted across trials. Pt Comments expressed sticking sensation in throat and upper chest with regular solid, which cleared with use of liquid wash. She stated she felt a tickle in her throat and utilized throat clearing following the PO trials, though not during. Further trials deferred for instrumentation. Fatigue/Endurance Endurance WNL Trego Swallow Yes Protocol Results The Trego Swallow Protocol is an evidence-based swallow screening protocol to determine aspiration risk. This tool has been validated across a number of different patient diagnoses and in a number of clinical settings. This is the only screening instrument that both identifies aspiration risk and, when passed, is able to recommend specific oral diets without the need for further instrumental dysphagia testing. Based upon research by Drs. Andrey Aguilar and Danae uPlido, this is a reliable and validated swallow screening protocol. Cognitive Screen: PASS Results with 3oz water test: PASS Results with cracker: PASS The IDDSI Framework Protocol: IDDSI.1 Findings Swallowing Function Pharyngeal phase dysphagia Severity of Swallow Mildly impaired Impairment Prognosis Good Based on Cognitive status,Family support,Age Comment Pt presents with signs and symptoms of pharyngeal dysphagia. Her globus sensation, excessive throat mucous, and chronic throat clearing and coughing symptoms may be consistent with reflux. MBSS recommended to identify vs. rule out reason for chronic throat clearing/coughing and globus sensation with liquids and pills. Based on pt?s good oral health status and intact immune function, pt remains at a low risk of pulmonary compromise associated with aspiration at this time. Pt does not appear to be at risk for malnutrition/dehydration due to no report of unintentional weight loss and no change to appetite. Diet modification/non oral nutrition not indicated. Recommend pt continue eating regular diet to maintain nutrition and hydration. Modified barium swallow study (MBSS) is indicated to thoroughly further assess patient?s swallow pathophysiology in order to determine the safest diet, effective compensatory strategies, and potential rehabilitation exercises for therapy. Additionally, pt appears to be a good candidate for outpatient speech therapy services targeting chronic cough suppression techniques after other reasons are ruled out ( pulmonology evaluation, allergy treatment, reflux treatment). Impact on Safety and No limitations Functioning Recommendations Instrumental Yes Assessment Swallowing Treatment Yes Frequency 1x/week Duration 2-3 months Recommended Solids Regular (IDDSI 7) Recommended Liquids Thin (IDDSI 0) Other The plan is for the patient to complete a modified Recommendations barium swallow study to further assess swallowing pathophysiology in order to determine treatment plan. Further goals will be established based on MBSS results . The plan is for the patient to participate in speech therapy services addressing dysphagia and chronic cough at a frequency of 1x every week as needed following MBSS results. Provided education in the importance of oral care for reduced aspiration pneumonia risk, general safe swallow precautions, and diet recommendation. Patient verbalized understanding. Safety Precautions/ Remain upright (90 degrees) during all oral intake, Swallowing Upright position at least 30 minutes after meals,Slow Recommendations rate; swallow between bites,Multiple swallows,Alternate liquids and solids Medication As Tolerated Recommendations Education Patient/Caregiver Described results of evaluation,Patient expressed Education understanding of evaluation,Patient expressed agreement with goals & treatment plans Goals Short-term Goals 1. Patient will complete MBSS to further assess swallowing pathophysiology and next steps in POC. 11/29/24: Provided education re: recommendation and patient agreeable to plan. CARPENTRY TEACHER called PCP?s office and sent a message requesting MBSS order. 2. Patient will participate in education of chronic cough strategies and independently recall at least two strategies. 3. Per patient report, patient will participate in daily HEP to improve overall swallowing efficiency. Long-term Goals 1. Patient will report an improvement in frequency and severity of occurrence of chronic cough. 2. Patient will safely tolerate least restrictive diet consistency to allow for safe consumption of daily meals without s/sx of globus sensation or chronic throat clearing.
--- NOTE | 2024-11-29 11:58 | ST.OPPOC ---
Physical, Occupational & Speech Therapy At [facility] Visit Care Team Role Provider Type Juan Henry DO Attending Provider Physician Family Provider Primary Care Provider Referring Provider Address: [address] [place] [address], [id number] Speech Pathology Plan of Care Plan of Care Dates 11/29/24-04/01/[address] Juan Henry Patient History Elizabeth Calderon is a 79-year-old female, referred for a clinical swallow evaluation by Dr. Henry due to concerns regarding swallowing liquids, pills, and chronic cough/throat clearing. About 9 months ago, pt had onset of difficulty swallowing liquids, particularly when waking up in the middle of the night. She also reported difficulty swallowing pills with liquid wash, stating they get stuck in her throat. She denied coughing or choking with solids, but reported occasional sticking sensation in her upper chest and throat with solids. Pt has a history of chronic cough. Upper endoscopy, pulmonology, or allergy treatment not recommended yet. Prior medical history includes diverticulosis, osteoporosis, and s/p parathyroid resection. Pt denied additional GI history, GERD, unintentional weight loss, or PNA. Short-term Goals 1. Patient will complete MBSS to further assess swallowing pathophysiology and next steps in POC . 11/29/24: Provided education re: recommendation and patient agreeable to plan. CLUB LOUNGE ATTENDANT called PCP?s office and sent a message requesting MBSS order. 2. Patient will participate in education of chronic cough strategies and independently recall at least two strategies. 3. Per patient report, patient will participate in daily HEP to improve overall swallowing efficiency. Long-term Goals 1. Patient will report an improvement in frequency and severity of occurrence of chronic cough. 2. Patient will safely tolerate least restrictive diet consistency to allow for safe consumption of daily meals without s/sx of globus sensation or chronic throat clearing. Comment: Electronically Signed by: SANTOS Galarza 11/29/24 0197 If you are in agreement with this Plan of Care, please return a signed and dated copy. I have reviewed this Plan of Care and certify that the skilled therapy services above are required to meet the patient?s needs. Physician Signature Date Printed Name and Credentials Clinical Instructor Signature Printed Name and Credentials
--- NOTE | 2025-03-21 09:27 | ST.OPDS ---
Visit Care Team Role Provider Type Juan Henry DO Attending Provider Physician Family Provider Primary Care Provider Referring Provider Address: [address] [place] [address], [id number] Pt was seen for MBSS on 12/05/24 and has not followed up on recommended treatment. OCC THER called pt who expressed she had a recent endoscopy and an esophageal dilation. She is also on medication for GERD. Pt reported an improvement in her swallowing function, though she still occasionally coughs with intake. Pt expressed she is satisfied with her current swallowing function. Account discharged per pt request. Pt aware she may request a new referral from her PCP at any time.
== END 2025-03-22 10:00 | disposition home or self-care (01) ==
LOC: SP 09:36
PROVIDERS: Family Provider Family Medicine; PCP Family Medicine; Referring Provider Family Medicine; Visit Provider Family Medicine
DX: R13.10 Dysphagia, unspecified (principal)
CPT/HCPCS: 92610

== ENCOUNTER → 2024-12-05 08:56 | Outpatient (CLI) | payer OTHER, SELFPAY ==
--- NOTE | 2024-12-05 15:40 | ST.SWALLOW ---
Visit Care Team Role Provider Type Juan Henry DO Attending Provider Physician Family Provider Primary Care Provider Referring Provider Specialty: Family Practice Address: [address] [place] [address], [facility] Email: ST Modified Barium Swallow Study DIRECTOR OF PULMONARY UNIT Modified Barium Swallow Study Start: 12/05/24 13:58 Freq: Status: Active Protocol: Document 12/05/24 13:59 LNK (Rec: 12/05/24 15:36 LNK Desktop) Modified Barium Swallow Study Total Time Visit Start Time 09:00 Visit Stop Time 10:00 Total Visit Minutes [address] Henry Reason for Referral dysphagia Setting Setting Outpatient Care Patient Information Identification Type Date of Patient History Pt was seen for a Modified Barium Swallow Study with complaints of difficulty swallowing. Pt described difficulty swallowing liquids, pills. She also mentioned a chronic cough/throat clearing. PMH includes diverticulosis, osteoporosis, and s/p parathyroid resection approximately 1 year ago. Pt denied additional GI history, GERD, or PNA. Pt noted her swallowing difficulty began approximately 9 months ago, especially swallowing liquids when waking up in the middle of the night. She noted, when asked, that she snacks frequently after dinner, at times eating immediately before going to bed. She also reported difficulty swallowing pills with liquid wash, stating they get stuck in her throat. She denied coughing or choking with solids, but reported occasional sticking sensation in her upper chest and throat with solids. Pt has a history of chronic cough and SOB at times. Pt denied history of neurological diagnoses, GERD, or neck injury/surgery. Subjective Pt was seated in the fluoroscopy chair with directions Observations and procedures described for her. She indicated she understood and agreed to proceed. Patient Positioning Position View Lat-A/P Imaging Lateral View Textures Administered Trials Presented Thin Liquid via Spoon (IDDSI 0),Thin Liquid via Cup ( IDDSI 0),Extremely Thick Liquid via Cup (IDDSI 4), Regular (IDDSI 7) Barium Tablet Yes The IDDSI Framework Protocol: IDDSI.1 Oral Impairment Source: The Modified Barium Swallow Impairment Profile (MBSImP??) Lip Closure No labial escape Tongue Control Cohesive bolus between tongue to palatal seal During Bolus Hold Bolus Preparation/ Timely & efficient chewing & mashing Mastication Bolus Transport/ Brisk tongue motion Lingual Motion Oral Residue Complete oral clearance Initiation of Bolus head in valleculae Pharyngeal Swallow Additional Oral Oral phase of swallow was observed to be WNL Impairment *OME and DKS were observed to be WNL. Observations *Dentition natural and in good hygiene *Mastication observed with rotary chew pattern. *Good bolus formation, control and AP transition. *Velopharyngeal closure was WNL. Pharyngeal Impairment Source: The Modified Barium Swallow Impairment Profile (MBSImP??) Soft Palate No bolus between soft palate & pharyngeal wall Elevation Laryngeal Elevation Comp.sup.move.thyroid cart.w/comp.approx.arytenoids to epiglot petiole Anterior Hyoid Partial anterior movement Excursion Epiglottic Movement Partial inversion Laryngeal Vestibular Complete; no air/contrast in laryngeal vestibule Closure Pharyngeal Stripping Present - complete Wave Pharyngoesophageal Complete distention & complete duration; no obstruction Segment Opening of flow Tongue Base No contrast between tongue base & posterior pharyngeal Retraction wall Pharyngeal Residue Collection of residue within/on pharyngeal structures Location Valleculae Additional *Unusual tissue bulges on anterior and posterior curry Pharyngeal across trials diverting bolus flow Observations *Inconsistent inversion of the epiglottis with vallecular pooling following swallows ranging from no inversion to horizontal *Adequate tongue base retraction strength, laryngeal elevation; forward movement of the hyoid *In lateral view, bolus is retained near UES for semi- solid and solid trials A/P View Textures Administered Trials Presented Thin Liquid via Cup (IDDSI 0) The IDDSI Framework Protocol: IDDSI.1 A/P View Observations Pharyngeal Complete Contraction Esophageal Clearance Esophageal retention w/regtrograde flow below Upright Position pharyngoesoph segment Vocal Fold Function Good Esophageal Function Slowed Clearing,Reverse Peristalsis Additional A-P *Thin barium liquid and calibrated barium tablet Observations presented in AP view *Esophageal retention from below cardiac bulb to the LES observed upon turning to AP *Retroflow of esophageal contents to the clavicles with water wash *Barium tablet cleared to the stomach without difficulty in a timely manner Clinical Impressions Dysphagia Type Pharyngeal,Esophageal Findings Pt presents with pharyngeal and esophageal dysphagia. Pt did not demonstrate laryngeal penetration or tracheal aspiration. Unusual tissue bulges were noted in the upper esophagus in the lateral view on the anterior and posterior curry of the esophagus proximal to the UES. Additionally, she presented with esophageal retention of solid and semisolid trials that partially cleared with water. Retroflow of esophageal contents were noted from LES to the level of the clavicles in AP position. Pt reports difficulty with swallowing water when she gets up at night stating it won't go down. Pt reported she snacks in the evening up until she goes to bed. Then gets up in the night and cannot drink water. Retained solids and retroflow of esophageal contents my account for her swallowing challenge at night. Unusual tissue bulges were observed within the upper esophagus on both anterior and posterior curry of the esophagus altering the bolus flow through that area. The results and recommendations of the MBSS were described to the pt while observing still pictures taken during the MBSS. Pt expressed appreciation and indicated she understood. All pt questions were addressed. Results were discussed with Dr. Henry's nurse via phone call. She stated she would present them to Dr. Henry. Patient Appropriate Yes: Base of tongue exercises and safe swallow for Therapy strategies Recommendations Diet Comments no diet change recommended Aspiration Precautions Additional Stop eating .5-1.0 hour prior to going to bed to allow Precautions esophagus to clear Treatment Plan Therapy Outpatient Speech Therapy Recommendations Recommended Other,GI Consult Referrals
== END ==
PROVIDERS: Family Provider Family Medicine; PCP Family Medicine; Referring Provider Family Medicine; Visit Provider Family Medicine
DX: R13.14 Dysphagia, pharyngoesophageal phase (principal)
CPT/HCPCS: 74230; 92526

== ENCOUNTER → 2025-01-08 09:45 | Outpatient (CLI) | payer OTHER, SELFPAY ==
--- NOTE | 2025-01-08 09:46 | DI.RAD.S_ITS ---
PROCEDURE: XR DEXA AXIAL SKELETON INDICATIONS: screen osteoporosis COMPARISON: [facility], CR, XR DEXA AXIAL SKELETON, 01/05/2023, 11:02. FINDINGS: Lumbar Spine: Bone mineral density 0.772 (previously 0.765) g/cm2, T score -2.5 (previously -2.6). Left Femoral Neck: Bone mineral density 0.717 (previously 0.699) g/cm2, T score -1.2 (previously -1.4). Left Hip: Bone mineral density 0.793 (previously 0.779) g/cm2, T score -1.2 (previously -1.3). Fracture Risk Calculation (when applicable): 10-year fracture risk of a major osteoporotic fracture 11 percent and of a hip fracture 2.3 percent. (T score greater or equal to -1.0 to: NORMAL) (T score from -1.1 to -2.4: OSTEOPENIA) (T score less than or equal to -2.5: OSTEOPOROSIS) IMPRESSION: Osteoporosis--- recommend repeat DEXA in 2 years or less for reassessment of response to treatment. Follow-up guidelines as follows: Osteoporosis: Consider a repeat DEXA and Vertebral Fracture Assessment (VFA) exam in 2 years or sooner if medically necessary, to reassess this patient's status. Osteopenia: Consider a repeat DEXA in 2-3 years to reassess this patient's status, or if there is a new clinical indication. Normal: Consider a repeat DEXA in 5 years or sooner, or if there is a new clinical indication. All treatment decisions require clinical judgment and consideration of individual patient factors, including patient preferences, comorbidities, previous drug use, risk factors not captured in the FRAX model (e.g., frailty, falls, vitamin D deficiency, increased bone turnover, interval significant decline in bone density ) and possible under- or over-estimation of fracture risk by FRAX. In addition, the NOF Guide recommends that FDA-approved medical therapies be considered in postmenopausal women and men age >= 50 years with a: * Hip or vertebral (clinical or morphometric) fracture * T-score of <=-2.5 at the spine or hip * Ten-year fracture probability by FRAX of >= 3% for hip fracture or >=20% for major osteoporotic fracture. Dictated by: Hussein Calzada M.D. on 01/08/2025 at 20:41 Approved by: Hussein Calzada M.D. on 01/08/2025 at 20:44
== END ==
LOC: RAD 09:45
PROVIDERS: Family Provider Family Medicine; PCP Family Medicine; Referring Provider Family Medicine; Visit Provider Family Medicine
DX: M81.0 Age-related osteoporosis without current pathological fracture (principal)
CPT/HCPCS: 77080